=== PATIENT | female | born 1950 | race Caucasian/White ===

== ENCOUNTER 2018-12-24 10:01 | Outpatient (CLI) | payer MEDICARE, BC, SELFPAY ==
[2018-12-24 13:05] LABS: Abs Immature Grans 0.01 k/cumm (0.0-0.09); Absolute Basophil Count 0.01 k/cumm (0.0-0.2); Absolute Lymphocyte Count 1.09 k/cumm (1.2-3.4); Absolute Monocyte Count 0.67 k/cumm (0.11-0.7); Absolute Neutrophil Count 3.69 k/cumm (1.2-6.7); Basophils % 0.2; Eosinophils % 1.8; HCT 38.9 % (36.0-46.0); HGB 13.2 g/dL (12.0-15.5); Immature Grans % 0.2; Lymphocytes % 19.6; Mean Corp. HGB Concentration 33.9 g/dL (32.0-36.0); Mean Corpuscular Hemoglobin 31.6 pg (27.0-33.0); Mean Corpuscular Volume 93.1 fL (80-95); Mean Platelet Volume 9.8 fL (8.0-11.0); Neutrophils % 66.2; Platelet Count 221 x1000/uL (130-400); RBC 4.18 m/cumm (4.00-5.20); RBC Distribution Width 13.2 % (11.7-14.6); White Blood Cell Count 5.57 k/cumm (4.4-10.8)
[2018-12-24 13:10] LABS: ALT 23 U/L (12-78); AST 25 U/L (15-37); Albumin 3.8 g/dL (3.4-5.0); Alkaline Phosphatase 59 U/L (46-116); BUN 16 mg/dL (7-18); Bilirubin, Total 0.4 mg/dL (0.2-1.0); CREATININE 1.05 mg/dL (0.55-1.02); Calcium 8.9 mg/dL (8.5-10.1); Chloride 102 mmol/L (98-107); Estimated GFR 52.12 (mL/min/1.73m2); Glucose 70 mg/dL (70-100); Potassium 4.2 mmol/L (3.5-5.1); Sodium 143 mmol/L (136-145); TSH (W/Ref FT4) 0.95 uIU/mL (0.358-3.74); Total Protein 6.7 g/dL (6.4-8.2)
[2018-12-24 14:05] LABS: ESR 8 MM/HR (0-30)
== END 2018-12-24 10:21 ==
PROVIDERS: PCP Family Medicine; Visit Provider Internal Medicine
DX: E03.9 Hypothyroidism, unspecified (principal); N28.89 Other specified disorders of kidney and ureter; J02.9 Acute pharyngitis, unspecified; J34.89 Other specified disorders of nose and nasal sinuses
CPT/HCPCS: 36415; 80053; 85652; 84443; 85025; 87070

== ENCOUNTER 2019-02-13 01:46 | Outpatient (CLI) | payer MEDICARE, BC, SELFPAY ==
--- NOTE | 2019-02-13 14:15 | DI.US_ITS ---
SYMPTOM/DIAGNOSIS: CAROTID BRUIT, R09.89, DIZZINESS, RT ARM AND LEG TINGLING CAROTID ULTRASOUND: Minimal plaque is noted in the common carotid bulbs. Velocity measurements obtained in the internal carotid arteries are within the normal range. Both vertebral arteries show antegrade flow. The external carotid arteries are also unremarkable. IMPRESSION: Minimal plaque. No significant internal carotid artery stenosis.
== END 2019-02-13 02:06 ==
PROVIDERS: PCP Family Medicine; Visit Provider Family Medicine
DX: R09.89 Other specified symptoms and signs involving the circulatory and respiratory systems (principal); R42 Dizziness and giddiness; R20.2 Paresthesia of skin
CPT/HCPCS: 93880

== ENCOUNTER 2019-05-29 00:32 | Outpatient (CLI) | payer MEDICARE, BC, SELFPAY ==
--- NOTE | 2019-05-29 08:21 | DI.RAD_ITS ---
SYMPTOMS/DIAGNOSIS: RT HIP PAIN, M25.551, G89.29 PELVIS AND RIGHT HIP: The hip joint spaces are well maintained. There is mild acetabular spurring and minimal spurring from the margins of the femoral heads. No joint space calcifications are seen. The SI joints show mild degenerative changes. Advanced degenerative changes are seen in the lower lumbar spine. IMPRESSION: Mild degenerative changes of both hips.
== END 2019-05-29 00:52 ==
PROVIDERS: PCP Family Medicine; Visit Provider Nurse Practitioner Family
DX: M25.551 Pain in right hip (principal); G89.29 Other chronic pain; M53.3 Sacrococcygeal disorders, not elsewhere classified; M16.0 Bilateral primary osteoarthritis of hip
CPT/HCPCS: 73502

== ENCOUNTER → 2019-06-10 10:13 | Outpatient (BNVA) | payer MEDICARE, BC, SELFPAY | PROVIDERS: PCP Family Medicine; Referring Provider Family Medicine; Visit Provider Student in an Organized Health Care Education/Training Program | DX: M25.551 Pain in right hip (principal); M70.71 Other bursitis of hip, right hip | CPT/HCPCS: 99214 ==

== ENCOUNTER → 2019-06-26 10:05 | Outpatient (BNVA) | payer MEDICARE, BC, SELFPAY | PROVIDERS: PCP Family Medicine; Referring Provider Family Medicine; Visit Provider Nurse Practitioner Adult Health | DX: G56.21 Lesion of ulnar nerve, right upper limb (principal); G56.01 Carpal tunnel syndrome, right upper limb | CPT/HCPCS: 95909; 99203; 99214 ==

== ENCOUNTER 2020-03-10 01:59 | Outpatient (CLI) | payer MEDICARE, BC, SELFPAY | END 2020-03-10 02:19 | PROVIDERS: PCP Family Medicine; Visit Provider Family Medicine | DX: E03.9 Hypothyroidism, unspecified (principal) | CPT/HCPCS: 36415; 84443 ==

== ENCOUNTER 2020-04-01 19:54 | Emergency (ER) | payer MEDICARE, BC, SELFPAY ==
[2020-04-01 19:58] VITALS: BP 130/64; PULSE 65; RESP 16; TEMP 36.8; O2SAT 100
--- NOTE | 2020-04-01 20:11 | ED.GENADUL_ITS ---
Discharge Plan Disposition Patient Disposition: HOME Condition: Stable Discharge Details Chief Complaint: Abd Prob Clinical Impression: Colitis Primary Care Provider: Iona Larkin ED Provider: Aniket Guy Home Meds and New Rx's Prescriptions: New prednisone 20 mg tablet 60 mg PO DAILY 4 Days Qty: 12 RF: 0 amoxicillin-pot clavulanate [Augmentin] 875-125 mg tablet 1 tab PO BID Qty: 14 RF: 0 ondansetron 4 mg tablet,disintegrating 4 mg PO Q8H PRN (Reason: nausea and vomiting) Qty: 30 RF: 0 Continued Shingrix (PF) 50 mcg/0.5 mL suspension for reconstitution 0.5 ml IM ONCE Qty: 1 RF: 1 VITAMIN B COMPLEX 1 EACH tablet 1 tab-cap PO DAILY RF: 0 dicyclomine 10 MG capsule 10 mg PO TID PRNQty: 25 RF: 2 levothyroxine 100 mcg tablet 100 mcg PO DAILY Qty: 90 RF: 4 ascorbic acid (vitamin C) [Vitamin C] 500 MG tablet 500 mg PO DAILY RF: 0 cholecalciferol (vitamin D3) [Vitamin D3] 1,000 UNIT capsule 1,000 unit PO DAILY RF: 0 amitriptyline 10 mg tablet 20 mg PO HS RF: 0 Discharge Instructions Instructions: Colitis (ED) Additional Instructions: you can take 1000mg tylenol and 600mg ibuprofen every 6 hours follow up with your primary care provider within 1 week if you feel more ill, have more pain or uncontrolled bleeding return to the emergency department Medical Decision Making 69 yo female with hx of hypothyroidism comes in with abdominal cramping and bloody stools starting at 3am. She was at [facility] when this started and went to [facility] and states had labs and CT showing colitis and felt better and was d/c'd. Since d/c fromthe ED has had intermittent cramping and stool with blood in it. Denies vomit, fevers, travel. Has soft abdomen no guarding or rebound mild lower abdominal tenderness. Suspect infectious colitis no blood on rectal exam here. Will try to obtain records from [facility], give toradol, zofran and solumedrol and reassess. labs reassuring, she feels improved with only minimal tenderness, no pain out of proportion to suggest mesenteric ischemia and no bleeding here. She feels well enough for d/c and is stable. Will start her on augmentin for colitis, advised f/u with pcp and return precautions given Differential Diagnosis Differential Diagnosis: colitis, diverticulitis, gastroenteritis Lab Data Lab results reviewed: Yes I reviewed the patient's lab results. HPI General Mode of arrival: ambulatory . Date/Time Provider Initiated Documentation: 04/01/20 20:02 . Limitations to Documentation: no limitations . Information obtained by: patient . History of Present Illness 69 year old F presents to the emergency department with the chief complaint of abdominal pain, described as moderate, and it has been intermittent. No relieving factors improve symptom(s), No exacerbating factors reported . Related Data Home Medications Medication Instructions Recorded Confirmed Vitamin B Complex 1 tab-cap PO DAILY tab-cap 09/26/13 04/01/20 ascorbic acid (vitamin C) [Vitamin 500 mg PO DAILY 11/06/17 04/01/20 C] cholecalciferol (vitamin D3) 1,000 unit PO DAILY 11/06/17 04/01/20 [Vitamin D3] dicyclomine 10 mg PO TID PRN #25 tab-cap 11/22/17 04/01/20 varicella-zoster gE-AS01B (PF) 50 0.5 ml IM ONCE #1 each 02/12/20 02/12/20 mcg/0.5 mL IM susp, kit levothyroxine 100 mcg tablet 100 mcg PO DAILY #90 tab-cap 03/26/20 04/01/20 amitriptyline 20 mg PO HS 04/01/20 04/01/20 amoxicillin-pot clavulanate 1 tab PO BID #14 tab 04/01/20 [Augmentin] ondansetron 4 mg PO Q8H PRN #30 tab 04/01/20 prednisone 60 mg PO DAILY 4 Days #12 tab 04/01/20 Previous Rx's Medication Instructions Recorded varicella-zoster gE-AS01B (PF) 50 0.5 ml IM ONCE #1 each 02/12/20 mcg/0.5 mL IM susp, kit levothyroxine 100 mcg tablet 100 mcg PO DAILY #90 tab-cap 03/26/20 amoxicillin-pot clavulanate 1 tab PO BID #14 tab 04/01/20 [Augmentin] ondansetron 4 mg PO Q8H PRN #30 tab 04/01/20 prednisone 60 mg PO DAILY 4 Days #12 tab 04/01/20 Allergies Allergy/AdvReac Type Severity Reaction Status Date / Time ciprofloxacin HCl AdvReac dizzy, Unverified 02/12/20 09:10 [From Cipro] confusion metronidazole [From Flagyl] AdvReac dizzy, Unverified 02/12/20 09:10 confusion General Stated Complaint: Abd Prob KANE: 2 Review of Systems All systems reviewed & are unremarkable except as noted in HPI and below Constitutional Constitutional: Denies chills, Denies fever(s) and Denies weakness Cardiovascular Cardiovascular: Denies chest pain and Denies dyspnea Respiratory Respiratory: Denies cough and Denies dyspnea Gastrointestinal Gastrointestinal: Denies vomiting Genitourinary Genitourinary: Denies dysuria Integumentary/Breasts Skin/Breast: Denies rash Neurologic Neurologic: Denies weakness [facility] Medical History (Updated 04/01/20 @ 21:07 by Aniket Guy MD) Age-related cataract of both eyes (Acute) Dr.Tuite Munoz (Acute) Hypothyroidism Macular cyst, hole, or pseudohole, left eye (Acute) Dr.Nancy Garsia/left eye: Amsler grid stable/ [facility] clinic [place], [place]/on going observation 2018 Osteoporosis (Chronic) Surgical History (Updated 02/11/20 @ 20:16 by Iona Larkin MD) Arthroplasty of knee (~1967) RIGHT Breast, Lumpectomy (~1976) RIGHT Ligation of fallopian tube (~1984) Nasal septoplasty (~1979) Tonsillectomy and adenoidectomy Age 5 - 1955 Family History (Updated 02/12/20 @ 13:47 by Adair Holcomb) Mother , 58 Lung cancer Maternal Grandmother , 94 Stroke Paternal Grandmother , 60 Cancer Father , 92 No problems noted. Sister No problems noted. Brother No problems noted. Maternal Grandfather , 80 No problems noted. Paternal Grandfather , 72 No problems noted. Daughter No problems noted. Daughter No problems noted. Sister No problems noted. Brother No problems noted. Brother No problems noted. Social History (Updated 02/12/20 @ 13:45 by Adair Holcomb) Smoking/Tobacco Use Status: Former Tobacco Use Tobacco: How many years used: 2 Second Hand Exposure: Yes Alcohol Intake: current Alcohol Intake frequency: 0-2 drinks per day Alcohol type: hard liquor Drug use: Never Substance use type: former substance user and marijuana Caregiver/Support person: Yes Household members: spouse Housing: house Communication Needs: None Do you need help understanding health information?: Never Pets and animals: Yes Pets and animals: dog(s) Sexually active: No Do you think of yourself as: straight/heterosexual Current gender identity: female What is your relationship status?: How often do you talk on the phone with friends or family?: three or more times per week How often do you get together with friends or relatives?: once per week How often do you attend amish or lutheran services?: 1-3 times per year Do you belong to any clubs or organized social groups?: yes Panel score (0-1 are the most socially isolated patients): 3 What type of physical activity do you participate in: bicycling, weight lifting and other Details: hockey,Alpine & downhill skiing, snowshoeing, tennis golf. Duration: 45-60 minutes/day Frequency: 3-4 times per week Diamond/Sikhism: Yazidism Special diamond needs: No Seatbelt use: always Helmet use: Yes Helmet use: always Drive intox or ride w/intox truck driver helper: No Working smoke detector in home: No Do you feel safe at home: Yes Do you feel safe in your relationship?: Yes Exam Const General: no acute distress Orientation: alert HENDE Head: normal to inspection Ears: external ears normal General nose exam: external nose normal Mouth: moist mucous membranes Eyes General: appearance normal, both eyes and all related structures Neck Neck: normal visual inspection Resp Effort & Inspection: normal respiratory effort and able to speak in complete sentences Cardio Rate: regular rate GI Palpation: soft Skin General skin exam: no rashes or lesions noted Neuro General: patient alert and patient oriented x3 Extrem General: normal to inspection Psych Mental Status: mental status grossly normal Course Vital Signs Vital signs: Vital Signs Temperature 36.8 C 04/01/20 19:58 Pulse 65 04/01/20 19:58 Respiratory Rate 16 04/01/20 19:58 Blood Pressure 130/64 04/01/20 19:58 Pulse Oximetry 100 04/01/20 19:58 Temperature 36.8 C 04/01/20 19:58 Pulse 65 04/01/20 19:58 Respiratory Rate 16 07/08/20 19:58 Respiratory Effort 04/01/20 20:07 Blood Pressure 130/64 04/01/20 19:58 Blood Pressure Position Sitting 04/01/20 19:58 Pulse Oximetry 100 04/01/20 19:58 Oxygen Delivery Method Room Air 04/01/20 19:58 Oxygen Flow Rate 0 04/01/20 19:58 Pain Level 4 04/01/20 19:58
[2020-04-01] MEDS: Normal Saline 1,000 ML 1000 ML IV (20:20)
[2020-04-01] MEDS: Ondansetron 4 MG/2 ML VIAL IVP (20:21)
[2020-04-01] MEDS: methylPREDNISolone SUCC 125 MG VIAL IVP (20:21)
[2020-04-01] MEDS: Ketorolac 15 MG/ML VIAL IVP (20:21)
[2020-04-01 20:28] LABS: Abs Immature Grans 0.02 k/cumm (0.0-0.09); Absolute Eosinophil Count 0.05 k/cumm (0.0-0.7); Absolute Lymphocyte Count 0.92 k/cumm (1.2-3.4); Absolute Monocyte Count 0.66 k/cumm (0.11-0.7); Eosinophils % 0.6; HCT 37.4 % (36.0-46.0); HGB 12.8 g/dL (12.0-15.5); Immature Grans % 0.2 %; Mean Corp. HGB Concentration 34.2 g/dL (32.0-36.0); Mean Corpuscular Hemoglobin 30.8 pg (27.0-33.0); Mean Corpuscular Volume 90.1 fL (80-95); Mean Platelet Volume 9.2 fL (8.0-11.0); Monocytes % 7.9; Neutrophils % 80.3; Platelet Count 251 x1000/uL (130-400); RBC 4.15 m/cumm (4.00-5.20); RBC Distribution Width 14.1 % (11.7-14.6); White Blood Cell Count 8.35 k/cumm (4.4-10.8)
[2020-04-01 20:44] LABS: PTT Activated 24.6 sec (21.0-31.4)
[2020-04-01 20:45] LABS: ALT 23 U/L (14-59); AST 31 U/L (15-37); Alkaline Phosphatase 50 U/L (46-116); BUN 15 mg/dL (7-18); Bilirubin, Direct 0.28 mg/dL (0.00-0.20); Bilirubin, Total 1.3 mg/dL (0.2-1.0); CREATININE 1.09 mg/dL (0.55-1.02); Calcium 8.7 mg/dL (8.5-10.1); Chloride 101 mmol/L (98-107); Estimated GFR 49.77 (mL/min/1.73m2); Glucose 98 mg/dL (74-106); Potassium 3.8 mmol/L (3.5-5.1); Sodium 137 mmol/L (136-145)
[2020-04-01] MEDS: Amoxicillin 875/Clav. 125 TAB PO (21:11)
[2020-04-01 21:18] VITALS: BP 134/69; PULSE 69; RESP 16; TEMP 36.9; O2SAT 100
== END 2020-04-01 21:24 | disposition home or self-care (01) ==
PROVIDERS: Emergency Provider Emergency Medicine; PCP Family Medicine
DX: K92.1 Melena (principal); K52.9 Noninfective gastroenteritis and colitis, unspecified; R10.30 Lower abdominal pain, unspecified
CPT/HCPCS: 36415; 80053; 96361; 96374; 96375; 99284; 82248; 85025; 85610; 85730; 99283; J1885; J2405; J2930

== ENCOUNTER 2020-04-21 13:02 | Outpatient (CLI) | payer MEDICARE, BC, SELFPAY ==
[2020-04-23 21:00] LABS: SARS-CoV-2 RNA Undetected (Undetected); SARS-CoV-2 Specimen Source Nasopharynx
== END 2020-04-21 13:22 ==
PROVIDERS: PCP Family Medicine; Visit Provider Family Medicine
DX: Z11.59 Encounter for screening for other viral diseases (principal)
CPT/HCPCS: U0003

== ENCOUNTER 2020-08-02 11:18 | Emergency (ER) | payer MEDICARE, BC, SELFPAY ==
--- NOTE | 2020-08-02 11:20 | ED.GENADUL_ITS ---
Discharge Plan Disposition Patient Disposition: HOME Condition: Good Discharge Details Clinical Impression: Dog bite, Hematoma Primary Care Provider: Iona Larkin ED Provider: Evy Cooper Home Meds and New Rx's Prescriptions: New amoxicillin-pot clavulanate [Augmentin] 875-125 mg tablet 1 tab PO BID Qty: 14 RF: 0 Continued Shingrix (PF) 50 mcg/0.5 mL suspension for reconstitution 0.5 ml IM ONCE Qty: 1 RF: 1 amitriptyline 10 mg tablet 15 mg PO HS Qty: 180 RF: 4 VITAMIN B COMPLEX 1 EACH tablet 1 tab-cap PO DAILY RF: 0 dicyclomine 10 MG capsule 10 mg PO TID PRNQty: 25 RF: 2 levothyroxine 100 mcg tablet 100 mcg PO DAILY Qty: 90 RF: 4 cholecalciferol (vitamin D3) [Vitamin D3] 1,000 UNIT capsule 1,000 unit PO DAILY RF: 0 Discharge Instructions Instructions: Animal Bite (ED), Hematoma (ED) Additional Instructions: Encourage rest, ice, elevation. Tylenol and/or ibuprofen if needed for discomfort. Please continue with the Yogesh wrap to help with swelling. Please monitor this wound closely for signs of infection including redness, warmth, drainage, increased pain, fever/chills. If you develop this or other new/worsening symptoms please seek care urgently once again. Otherwise, I would like this 1 to be rechecked next week for reevaluation. Please call your primary care tomorrow to schedule follow-up appointment. Please take the Augmentin as prescribed to help with infection. First dose was given here today, next dose may be taken tonight prior to bed. Referrals: Iona Larkin MD [Primary Care Provider] - Discharge Data Discharge Date/Time-TO BE ENTERED AT DEPARTURE: 08/02/20 12:00 Medical Decision Making Patient is a pleasant 70-year-old female presenting today with chief complaint of dog bite. She reports that prior to arrival she was riding her bike when a dog came at her aggressively. She has that she is trying to unclip from the bike and get off the bike when the dog bit the posterior aspect of her left calf. She denies any numbness or tingling. Denies other injuries from the incident. She states that she was able to meet with the dog tip puncher and confirm that the dog is vaccinated states that the dog is physically aggressive towards by bikers. She states her tetanus is up-to-date. On exam, patient is resting comfortably. She has a puncture wound to the posterior aspect of her left calf consistent with dog bite. 7 of these are very superficial with one being slightly deeper. However, with irrigation there did visualize the bases this did not see any foreign body or debris. All of these wounds were well irrigated and cleansed by nursing staff. She has a hematoma around this area it does not feel firm. No indication at this time to suggest compartment syndrome. She has good sensation distally, full range of motion of the knee and ankle. 2+ distal pulses. Patient will be started on Augmentin. Her tetanus is up-to-date. We did contact telehealth after to report the dog bite. Patient was given return precautions. In particular, patient I discussed symptoms associated with infection as well department syndrome. I would like for her to have this evaluated by her primary care this week. Asked that she call tomorrow to schedule appointment. All of her questions and concerns were addressed and she is in agreement this plan. HPI General Mode of arrival: ambulatory . Date/Time Provider Initiated Documentation: 08/02/20 11:20 . Limitations to Documentation: no limitations . Information obtained by: patient and RN notes reviewed . History of Present Illness 70 year old F presents to the emergency department with the chief com plaint of dog bite left calf, described as moderate, and is localized to the left and lower extremity. Patient reports no radiation. Patient started experiencing this minute(s) and it has been constant. No relieving factors improve symptom(s), No exacerbating factors reported . Patient notes no other symptoms.. Patient did receive the following treatments prior to arrival, none Related Data Home Medications Medication Instructions Recorded Confirmed Vitamin B Complex 1 tab-cap PO DAILY tab-cap 09/26/13 08/02/20 cholecalciferol (vitamin D3) 1,000 unit PO DAILY 11/06/17 08/02/20 [Vitamin D3] dicyclomine 10 mg PO TID PRN #25 tab-cap 11/22/17 08/02/20 varicella-zoster glycoE vacc-AS01B 0.5 ml IM ONCE #1 each 02/12/20 08/02/20 adj(PF) 50 mcg/0.5 mL IM susp, kit levothyroxine 100 mcg tablet 100 mcg PO DAILY #90 tab-cap 03/26/20 08/02/20 amitriptyline 10 mg tablet 15 mg PO HS #180 tab 06/22/20 08/02/20 amoxicillin-pot clavulanate 1 tab PO BID #14 tab 08/02/20 [Augmentin] Previous Rx's Medication Instructions Recorded varicella-zoster glycoE vacc-AS01B 0.5 ml IM ONCE #1 each 02/12/20 adj(PF) 50 mcg/0.5 mL IM susp, kit levothyroxine 100 mcg tablet 100 mcg PO DAILY #90 tab-cap 03/26/20 amitriptyline 10 mg tablet 15 mg PO HS #180 tab 06/22/20 amoxicillin-pot clavulanate 1 tab PO BID #14 tab 08/02/20 [Augmentin] Allergies Allergy/AdvReac Type Severity Reaction Status Date / Time ciprofloxacin HCl AdvReac dizzy, Verified 08/02/20 11:27 [From Cipro] confusion metronidazole [From Flagyl] AdvReac dizzy, Verified 08/02/20 11:27 confusion General KANE: 2 Review of Systems Constitutional Constitutional: Reports as per HPI, Denies chills and Denies fever(s) Musculoskeletal Musculoskeletal: Reports as per HPI Integumentary/Breasts Skin/Breast: Reports as per HPI Neurologic Neurologic: Reports as per HPI, Denies sensory deficit and Denies paresthesias [facility] Medical History Age-related cataract of both eyes Anxiety Hypothyroidism Macular cyst, hole, or pseudohole, left eye Dr.Nancy Garsia/left eye: Amsler grid stable/ [facility] clinic [place], [place]/on going observation 2018 Osteoporosis Surgical History Arthroplasty of knee (~1967) RIGHT Breast, Lumpectomy (~1976) RIGHT Ligation of fallopian tube (~1984) Nasal septoplasty (~1979) Tonsillectomy and adenoidectomy Age 5 - 1955 Family History Mother , 58 Lung cancer Maternal Grandmother , 94 Stroke Paternal Grandmother , 60 Cancer Father , 92 No problems noted. Sister No problems noted. Brother No problems noted. Maternal Grandfather , 80 No problems noted. Paternal Grandfather , 72 No problems noted. Daughter No problems noted. Daughter No problems noted. Sister No problems noted. Brother No problems noted. Brother No problems noted. Social History Smoking/Tobacco Use Status: Former Tobacco Use Tobacco: How many years used: 2 Second Hand Exposure: Yes Smoking risk assessment performed?: Yes Alcohol Intake: current Alcohol Intake frequency: 0-2 drinks per day Alcohol type: hard liquor Drug use: Never Substance use type: former substance user and marijuana Caregiver/Support person: Yes Household members: spouse Housing: house Communication Needs: None Do you need help understanding health information?: Never Pets and animals: Yes Pets and animals: dog(s) Sexually active: No Do you think of yourself as: straight/heterosexual Current gender identity: female What is your relationship status?: How often do you talk on the phone with friends or family?: three or more times per week How often do you get together with friends or relatives?: once per week How often do you attend cheondoism or nondenominational services?: 1-3 times per year Do you belong to any clubs or organized social groups?: yes Panel score (0-1 are the most socially isolated patients): 3 What type of physical activity do you participate in: bicycling, weight lifting and other Details: hockey,Alpine & downhill skiing, snowshoeing, tennis golf. Duration: 45-60 minutes/day Frequency: 3-4 times per week Diamond/Christian: Congregation Special diamond needs: No Seatbelt use: always Helmet use: Yes Helmet use: always Drive intox or ride w/intox transit mixer driver: No Working smoke detector in home: No Do you feel safe at home: Yes Do you feel safe in your relationship?: Yes Exam Const General: cooperative, healthy appearing, comfortable, no acute distress and well developed Nutritional Appearance: average body habitus and well nourished Orientation: alert and awake Resp Effort & Inspection: normal respiratory effort, able to speak in complete sentences and no respiratory distress Cardio Rate: regular rate Rhythm: regular rhythm Skin General skin exam: ecchymosis (hematoma under areas of puncture) Trauma: puncture (#8 puncture wounds, 7 of which are superficial, no longer laceration) Neuro General: patient alert and patient awake Cognition: normal cognition Speech: speech normal Gait: normal gait Sensory Exam: no sensory deficits noted Extrem Upper/lower leg/hip images: 1. area of hematoma. Otherwise soft with good ROM of ankle. No evidence to suggest compartment sydnrome. Nontender. 8 puncture sites are noted with majority being very superficial. One breaks through skin completely but again, not very deep with bottom visualized when cleansing. Sensation intact. 2+ distal pulses. Psych Appearance: grossly normal and well kempt Mental Status: mental status grossly normal Speech and Movement: speech and movement normal
[2020-08-02 11:23] VITALS: BP 135/75; PULSE 72; TEMP 36.3; O2SAT 100
[2020-08-02] MEDS: Amoxicillin 875/Clav. 125 TAB PO (12:00)
--- NOTE | 2020-08-02 12:04 | NUR.NOTE ---
Animal bite form faxed to [facility], , Message left on voice mail Luis Armando Destini [phone] [facility] Health Officer asking him to please call back.Nursing Note:
--- NOTE | 2020-08-02 16:23 | NUR.NOTE ---
Luis Armando Georges returned phone call for animal bite information at 17:24.Nursing Note:
== END 2020-08-02 12:00 | disposition home or self-care (01) ==
LOC: ER 11:54
PROVIDERS: Emergency Provider Physician Assistant; PCP Family Medicine
DX: S81.852A Open bite, left lower leg, initial encounter (principal); W54.0XXA Bitten by dog, initial encounter
CPT/HCPCS: 99283

== ENCOUNTER 2020-09-11 09:09 | Outpatient (CLI) | payer MEDICARE, BC, SELFPAY ==
[2020-09-14 12:11] LABS: COVID-19 RT-PCR Result NEGATIVE (Negative)
== END 2020-09-11 09:29 ==
PROVIDERS: PCP Family Medicine; Visit Provider Family Medicine
DX: Z11.59 Encounter for screening for other viral diseases (principal)
CPT/HCPCS: U0003

== ENCOUNTER 2020-12-29 03:22 | Outpatient (CLI) | payer MEDICARE, BC, SELFPAY ==
[2020-12-29 12:30] LABS: HCT 35.8 % (36.0-46.0); MCH 30.8 pg (27.0-33.0); MCHC 33.5 % (32.0-36.0); MPV 9.6 fL (8.0-11.0); Platelet Count 248 10^3/uL (130-400); RBC 3.89 10^6/uL (3.93-5.22); RDW 13.8 % (11.7-14.6); RDW-SD 46.1 fL; WBC 4.03 10^3/uL (4.4-10.8)
[2020-12-29 13:15] LABS: C-Reactive Protein 0.09 mg/dL (0.0-0.3)
== END 2020-12-29 03:23 | disposition home or self-care (01) ==
PROVIDERS: Nurse Practitioner Family; PCP Family Medicine; Visit Provider Internal Medicine Gastroenterology
DX: R19.7 Diarrhea, unspecified (principal); R10.30 Lower abdominal pain, unspecified
CPT/HCPCS: 36415; 85027; 86140

== ENCOUNTER 2021-02-23 02:46 | Outpatient (CLI) | payer MEDICARE, BC, SELFPAY ==
[2021-02-23 13:01] LABS: CREATININE 1.2 mg/dL (0.55-1.02); Estimated GFR 44.41 (mL/min/1.73m2); TSH 0.96 uIU/mL (0.36-3.74)
== END 2021-02-23 02:47 | disposition home or self-care (01) ==
LOC: LOS 02:46
PROVIDERS: PCP Family Medicine; Visit Provider Nurse Practitioner
DX: N18.30 Chronic kidney disease, stage 3 unspecified (principal); R19.7 Diarrhea, unspecified
CPT/HCPCS: 36415; 82565; 84443

== ENCOUNTER 2021-12-21 03:14 | Outpatient (CLI) | payer MEDICARE, BC, SELFPAY ==
[2021-12-21 13:23] LABS: Hemoglobin A1C 5.8 % (<5.7)
[2021-12-21 13:51] LABS: Anion Gap 8.8 mmol/L (3-11); BUN 17 mg/dL (7-18); CO2 29.2 mmol/L (21.0-32.0); Calcium 9.3 mg/dL (8.5-10.1); Calculated LDL 61 mg/dL (<100); Chloride 103 mmol/L (98-107); Cholesterol 160 mg/dL (<200); Estimated GFR 54.66 (mL/min/1.73m2); Glucose 85 mg/dL (74-106); HDL Cholesterol 91 mg/dL (40-60); Potassium 3.9 mmol/L (3.5-5.1); Sodium 141 mmol/L (136-145); TSH 0.59 uIU/mL (0.36-3.74); Triglyceride 41 mg/dL (<150)
[2021-12-21 14:13] LABS: FREE T4 1.27 ng/dL (0.76-1.46)
== END 2021-12-21 03:15 | disposition home or self-care (01) ==
LOC: LBO 03:14
PROVIDERS: PCP Nurse Practitioner Family; Visit Provider Nurse Practitioner Family
DX: E03.9 Hypothyroidism, unspecified (principal); N18.30 Chronic kidney disease, stage 3 unspecified; R73.09 Other abnormal glucose
CPT/HCPCS: 36415; 80048; 80061; 83036; 84439; 84443

== ENCOUNTER 2022-08-29 16:34 | Emergency (ER) | payer MEDICARE, BC, SELFPAY ==
[2022-08-29 16:39] VITALS: BP 139/64; PULSE 62; RESP 20; TEMP 36.7; O2SAT 99
--- NOTE | 2022-08-29 16:45 | DI.RAD_ITS ---
Exam(s) XR WRIST LT COMPLETE EXAM: XR WRIST LT COMPLETE CLINICAL HISTORY: fall/pain. TECHNIQUE: 2D digital imaging was performed of the left wrist. Three images were obtained. PA, obl ique and lateral views were obtained. COMPARISON: CR LEFT WRIST COMPLETE from 08/12/2016 FINDINGS: BONES: There is an acute impacted fracture of the distal metaphysis of the left radius. No bony dest ructive lesion is seen. JOINTS: The carpal bones are normally aligned. There are marked degenerative changes seen at the 1st CMC joint with joint space narrowing, subchondral sclerosis and bony hypertrophy. SOFT TISSUE: Soft tissue swelling is seen at the wrist. IMPRESSION: Acute impacted fracture of the distal radius. DATA REPOSITORY: RADIATION DOSE DELIVERED:
--- NOTE | 2022-08-29 17:45 | ED.GENADUL_ITS ---
Discharge Plan Disposition Patient Disposition: Home Condition: Stable Discharge Details Clinical Impression: Left radial fracture Primary Care Provider: Anita Arriola ED Provider: Hernandez Schofield Home Meds and New Rx's Prescriptions: Continued amitriptyline 10 mg tablet 15 mg PO QHS Qty: 90 3RF VITAMIN B COMPLEX 1 EACH tablet 1 tab-cap PO DAILY dicyclomine 10 MG capsule 10 mg PO TID PRNQty: 25 Rx Instructions: take one capsule at the onset of abdominal pain/may repeat up to 3 times per day levothyroxine 100 mcg tablet 100 mcg PO DAILY Qty: 90 3RF cholecalciferol (vitamin D3) [Vitamin D3] 1,000 UNIT capsule 1,000 unit PO DAILY Discharge Instructions Instructions: Arm Fracture in Adults (ED) Additional Instructions: Rest, elevate, cool compresses every 2 hours for 20 minutes. [id number] medications as directed for symptomatic control. Wear splint until reevaluation with orthopedics. I have placed you on the orthopedic list, please contact thei r office tomorrow to discuss your ER visit need for outpatient reevaluation. Please watch for new or worsening symptoms and return to the ER for any concerns. Referrals: Alejandro Mendoza MD [ [facility] STAFF PHYSICIAN] - Medical Decision Making 72-year-old female, [id number], not anticoagulated, presents status post mechanical slip and fall injuring her left wrist. Denies any other injury. Plan to obtain x-ray and reassess. Patient declines any medication for analgesia. X-ray reveals a transverse impacted fracture of the distal radius. Discussed x-ray findings with patient and spouse. Patient appropriate splinted, placed on the orthopedic list to expedite outpatient orthopedic follow-up. Patient remains neuro, vascular, tendon intact as examined by me status post splint application Standard discharge and return precautions were provided. Patient understands, is agreeable to this plan, and has no additional questions or concerns upon discharge. This documentation was generated using [employer] system, please disregard any oddities of phrase or misspellings. Imaging Data Radiologic Study: Attestation: I personally reviewed and interpreted this imaging study as follows: Imaging: X-Ray Radiologist's impression: PROCEDURE INFORMATION: Exam: XR Left Wrist Exam date and time: 08/29/2022 5:19 PM Age: 72 years old Clinical indication: Other: Fall/pain TECHNIQUE: Imaging protocol: Radiologic exam of the Left wrist. Views: 3 or more views. COMPARISON: CR LEFT WRIST COMPLETE 08/12/2016 12:37 PM FINDINGS: Bones/joints: Transverse impacted fracture of the distal radius. No dislocation. Chronic well corticated ossific density adjacent to the ulnar styloid. Severe 1st CMC joint osteoarthritis. Soft tissues: Wrist swelling. IMPRESSION: Transverse impacted fracture of the distal radius. Sign Out No HPI General Mode of arrival: ambulatory . Date/Time Provider Initiated Documentation: 08/29/22 16:47 . Limitations to Documentation: no limitations . Information obtained by: patient . History of Present Illness 72 year old F presents to the emergency department with the chief complaint of L wrist injury, described as severe, with intensity rated at 7. Quality is described as aching, and is localized to the left and upper extremity. Patient reports no radiation. Patient started experiencing this hour(s) (2) and it has been constant. Immobilization improves symptom(s), Movement worsens symptoms . Patient notes no other symptoms.. Patient did receive the following treatments prior to arrival, none Related Data Home Medications Medication Instructions Recorded Confirmed Vitamin B Complex 1 tab-cap PO DAILY 09/26/13 08/25/22 cholecalciferol (vitamin D3) 25 1,000 unit PO DAILY 11/06/17 08/25/22 mcg (1,000 unit) capsule (Vitamin D3) dicyclomine 10 mg capsule 10 mg PO TID PRN #25 tab-caps 11/22/17 08/25/22 levothyroxine 100 mcg tablet 100 mcg PO DAILY #90 tab-caps 12/22/21 08/25/22 amitriptyline 10 mg tablet 15 mg PO QHS #90 tabs 08/25/22 08/25/22 Previous Rx's Medication Instructions Recorded levothyroxine 100 mcg tablet 100 mcg PO DAILY #90 tab-caps 12/22/21 amitriptyline 10 mg tablet 15 mg PO QHS #90 tabs 08/25/22 Allergies Allergy/AdvReac Type Severity Reaction Status Date / Time ciprofloxacin HCl AdvReac dizzy, Verified 08/25/22 09:52 [From Cipro] confusion metronidazole [From Flagyl] AdvReac dizzy, Verified 08/25/22 09:52 confusion General Stated Complaint: Orthopedic KANE: 4 Review of Systems Constitutional Constitutional: Denies weakness Musculoskeletal Musculoskeletal: Reports arthralgias, Reports joint swelling, Denies numbness, Reports stiffness and Denies tingling Integumentary/Breasts Skin/Breast: Denies rash Neurologic Neurologic: Denies numbness, Denies tingling and Denies weakness PFSH All Active Problems (Updated 08/29/22 @ 18:39 by BRODEI Sen) Left radial fracture (Acute) Plantar fasciitis, right (Acute) CKD (chronic kidney disease) stage 3, GFR 30-59 ml/min (Chronic) Hypothyroidism (Chronic) Osteoporosis (Chronic) Generalized anxiety disorder (Chronic) Macular cyst, hole, or pseudohole, left eye (Chronic) Dr.Nancy Garsia/left eye: [facility] [place], [place]/on going observation 2018 Medical History Prediabetes Surgical History History of bilateral ligation of fallopian tubes S/P nasal septoplasty S/P right knee arthroscopy Status post tonsillectomy and adenoidectomy Family History Mother , 58 Lung cancer Maternal Grandmother , 94 Stroke Paternal Grandmother , 60 Cancer Father , 92 No problems noted. Sister No problems noted. Brother No problems noted. Maternal Grandfather , 80 No problems noted. Paternal Grandfather , 72 No problems noted. Daughter No problems noted. Daughter No problems noted. Sister No problems noted. Brother No problems noted. Brother No problems noted. Social History Smoking/Tobacco Use Status: Never Tobacco: How many years used: 2 Second Hand Exposure: Yes Smoking risk assessment performed?: Yes Alcohol Intake: current Alcohol Intake frequency: a few times a month Alcohol type: hard liquor Drug use: Never Caregiver/Support person: No Household members: spouse Housing: house Do you need help understanding health information?: Rarely Pets and animals: Yes Pets and animals: dog(s) Sexually active: No Do you think of yourself as: straight/heterosexual Current gender identity: female What is your relationship status?: How often do you talk on the phone with friends or family?: three or more times per week How often do you get together with friends or relatives?: once per week Do you belong to any clubs or organized social groups?: yes Panel score (0-1 are the most socially isolated patients): 3 What type of physical activity do you participate in: walking, bicycling, weight lifting and other Details: hockey,Alpine & downhill skiing, snowshoeing, tennis golf. Duration: 45-60 minutes/day Frequency: 5-6 times per week Diamond/Druze: Hinduism Special diamond needs: No Seatbelt use: always Helmet use: Yes Helmet use: always Drive intox or ride w/intox bicycle taxi driver: No Working smoke detector in home: No Do you feel safe at home: Yes Do you feel safe in your relationship?: Yes Exam Const General: cooperative, healthy appearing, comfortable and no acute distress Orientation: alert and awake HENNY Head: normal to inspection, normocephalic and atraumatic Eyes Conjunctivae: conjunctivae normal Neck Neck: normal visual inspection, full ROM, trachea midline and supple Resp Effort & Inspection: normal respiratory effort and able to speak in complete sentences Cardio Rate: regular rate Rhythm: regular rhythm Skin General skin exam: no rashes or lesions noted Neuro General: patient alert, patient awake, moves all extremities and no focal motor deficits Cognition: normal cognition Speech: speech normal Gait: normal gait Sensory Exam: no sensory deficits noted Extrem General: capillary refill normal Other: Left wrist skin intact. Neuro, vascular, tendon intact. Limited range of motion secondary to discomfort. Diffuse mild swelling and tenderness worse over the radial aspect. Normal capillary refill and radial pulse. Elbow unremarkable Psych Appearance: grossly normal Mental Status: mental status grossly normal Course Vital Signs Vital signs: Vital Signs Temperature 36.7 C 08/29/22 16:39 Pulse 62 08/29/22 16:39 Respiratory Rate 20 08/29/22 16:39 Blood Pressure 139/64 08/29/22 16:39 Pulse Oximetry 99 08/29/22 16:39 Temperature 36.7 C 08/29/22 16:39 Temperature Source Temporal Artery Scan 08/29/22 16:39 Pulse 62 08/29/22 16:39 Respiratory Rate 20 08/29/22 16:39 Respiratory Effort 08/29/22 16:46 Blood Pressure 139/64 08/29/22 16:39 Blood Pressure Position Sitting 08/29/22 16:39 Pulse Oximetry 99 08/29/22 16:39 Oxygen Delivery Method Room Air 08/29/22 16:39 Oxygen Flow Rate 0 08/29/22 16:39 Pain Level 6 08/29/22 16:39 Procedures Orthopedic Splinting/Casting Injury #1: Side: left Upper Extremity Injury Location: wrist Upper Extremity Immobilizer: wrist splint
--- NOTE | 2022-08-30 09:26 | NUR.NOTE ---
Nursing Note: Patient called asking for pain medication for a fx wrist. It was offered yesterday but she declined and now wants some. Per Dr Guy, she would need to be seen in order to prescribe a narcotic pain medication. She was offered to return to the ED or call her PCP. She is going to try her PCP first.
== END 2022-08-29 18:47 | disposition home or self-care (01) ==
PROVIDERS: Emergency Provider Physician Assistant; PCP Nurse Practitioner Family
DX: S52.592A Other fractures of lower end of left radius, initial encounter for closed fracture (principal); W00.0XXA Fall on same level due to ice and snow, initial encounter
CPT/HCPCS: 29125; 99283; 73110

== ENCOUNTER 2022-09-06 11:02 | Outpatient (CLI) | payer MEDICARE, BC, SELFPAY ==
--- NOTE | 2022-09-06 10:58 | DI.RAD_ITS ---
Exam(s) XR WRIST LT LIMITED EXAM: XR WRIST LT LIMITED CLINICAL HISTORY: left radius fx f/u. TECHNIQUE: 2D digital imaging was performed of the left wrist. Two images were obtained. PA and la teral views were obtained. COMPARISON: CR,XR XR WRIST LT COMPLETE from 08/29/2022 FINDINGS: BONES: There has been no change in alignment of the distal left radial fracture. No new fracture is identified. No bony destructive lesion is seen. JOINTS: The carpal bones are normally aligned. There are marked degenerative changes seen at the 1st CMC joint. SOFT TISSUE: Normal. IMPRESSION: Stable distal radial fracture. DATA REPOSITORY: RADIATION DOSE DELIVERED:
== END 2022-09-06 11:03 | disposition home or self-care (01) ==
LOC: DIORS 11:02
PROVIDERS: PCP Nurse Practitioner Family; Referring Provider Nurse Practitioner Family; Visit Provider Student in an Organized Health Care Education/Training Program
DX: S52.502A Unspecified fracture of the lower end of left radius, initial encounter for closed fracture (principal); W00.0XXA Fall on same level due to ice and snow, initial encounter
CPT/HCPCS: 99203; 99213; 73100

== ENCOUNTER 2022-10-11 10:17 | Outpatient (CLI) | payer MEDICARE, BC, SELFPAY ==
--- NOTE | 2022-10-11 09:30 | DI.RAD_ITS ---
Exam(s) XR WRIST LT LIMITED EXAM: XR WRIST LT LIMITED CLINICAL HISTORY: left wrist f/u. TECHNIQUE: 2D digital imaging was performed. COMPARISON: X-rays 09/06/2022 FINDINGS: Two views: Area of sclerosis in distal radius denotes the healing fracture site. No significant displacement. No significant ulnar variance and there is no acute fracture of the ulnar styloid. Additional cortic ated osteophytic density distal to the ulnar styloid is again noted and is not an acute fracture frag ment. IMPRESSION: Healing fracture distal radius as described above. DATA REPOSITORY: RADIATION DOSE DELIVERED:
== END 2022-10-11 10:18 | disposition home or self-care (01) ==
LOC: DIORS 10:17
PROVIDERS: PCP Nurse Practitioner Family; Referring Provider Nurse Practitioner Family; Visit Provider Student in an Organized Health Care Education/Training Program
DX: S52.502D Unspecified fracture of the lower end of left radius, subsequent encounter for closed fracture with routine healing (principal); X58.XXXD Exposure to other specified factors, subsequent encounter; M18.12 Unilateral primary osteoarthritis of first carpometacarpal joint, left hand; G56.02 Carpal tunnel syndrome, left upper limb
CPT/HCPCS: 99213; 73100

== ENCOUNTER 2022-10-21 14:25 | Outpatient (CLI) | payer MEDICARE, BC, SELFPAY ==
--- NOTE | 2022-10-21 14:19 | DI.RAD_ITS ---
Exam(s) XR SHOULDER RT COMPLETE 2+V EXAM: XR SHOULDER RT COMPLETE 2+V CLINICAL HISTORY: RT SHOULDER OA, IMPINGEMENT, CAPSULITIS. TECHNIQUE: 2D digital imaging was performed of the right shoulder. Five images were obtained. AP, Grashey, Y-view and axillary views were obtained. COMPARISON: No exams were available for comparison FINDINGS: BONES: No acute fracture is present. No bony destructive lesion is seen. JOINTS: No dislocation present. There are marked degenerative changes seen at the glenohumeral joint with joint space narrowing and a large osteophyte from the inferior humeral head. Mild degenerative changes are seen at the acromioclavicular joint. SOFT TISSUE: Normal. IMPRESSION: Marked osteoarthritis of the glenohumeral joint. DATA REPOSITORY: RADIATION DOSE DELIVERED:
== END 2022-10-21 14:45 ==
PROVIDERS: PCP Nurse Practitioner Family; Visit Provider Neuromusculoskeletal Medicine & OMM
DX: M25.511 Pain in right shoulder (principal); M19.011 Primary osteoarthritis, right shoulder; M25.811 Other specified joint disorders, right shoulder
CPT/HCPCS: 73030

== ENCOUNTER 2023-02-17 01:49 | Outpatient (CLI) | payer MEDICARE, BC, SELFPAY ==
[2023-02-17 15:01] LABS: Anion Gap 3.8 mmol/L (3-11); BUN 16 mg/dL (7-18); CO2 32.2 mmol/L (21.0-32.0); Calcium 9.3 mg/dL (8.5-10.1); Chloride 106 mmol/L (98-107); Estimated GFR 59.86 (mL/min/1.73m2); Glucose 118 mg/dL (74-106); Potassium 4.2 mmol/L (3.5-5.1); Sodium 142 mmol/L (136-145); TSH (W/Ref FT4) 0.79 uIU/mL (0.36-3.74)
== END 2023-02-17 01:50 | disposition home or self-care (01) ==
LOC: LBO 01:49
PROVIDERS: PCP Nurse Practitioner Family; Visit Provider Nurse Practitioner Family
DX: E03.9 Hypothyroidism, unspecified (principal)
CPT/HCPCS: 36415; 80048; 84443

== ENCOUNTER 2023-03-10 00:40 | Outpatient (CLI) | payer MEDICARE, BC, SELFPAY ==
--- NOTE | 2023-03-10 07:45 | DI.DEXA_ITS ---
Exam(s) XR DEXA BONE DENSITY W/WO DAVID EXAM: XR DEXA BONE DENSITY W/WO DAVID CLINICAL HISTORY: screening for osteoporosis in postmenopausal woman,z78.0 TECHNIQUE: Routine DEXA evaluation of the lumbar spine, hip, or forearm. COMPARISON: Prior DEXA scan performed September 2017. FINDINGS: Performed on a [employer] unit. Lateral image: No compression fracture evident. Lumbar Spine total T-score: -2.7. Prior reading in 2018 was -2 1 Hip total T-score:-1.9. Prior reading in 2018 was -1.6. Independent reading at the level of the femoral neck yields T-score of -2.5 Forearm total T-score: -3.2 IMPRESSION: Bone mineral density measures in the osteoporosis range. Fracture risk is high. Note: Any spine fracture indicates 5x risk for subsequent spine fracture and 2x risk for subsequent h ip fracture. World Health Organization criteria for BMD interpretation classify patients: Normal...... T- Score at or above -1.0 Osteopenic... T- Score between -1.0 and -2.5 Osteoporosis... T-Score at or below -2.5
== END 2023-03-10 01:00 ==
LOC: DI 00:41
PROVIDERS: PCP Nurse Practitioner Family; Visit Provider Nurse Practitioner Family
DX: M81.0 Age-related osteoporosis without current pathological fracture (principal); Z78.0 Asymptomatic menopausal state; Z13.820 Encounter for screening for osteoporosis
CPT/HCPCS: 77080

== ENCOUNTER 2023-04-28 09:48 | Outpatient (CLI) | payer MEDICARE, BC, SELFPAY ==
--- NOTE | 2023-04-28 09:00 | DI.RAD_ITS ---
Exam(s) XR KNEE RT 3V AP,LAT,PEEWEE EXAM: XR KNEE RT 3V AP,LAT,PEEWEE CLINICAL HISTORY: RIGHT KNEE PAIN. TECHNIQUE: 2D digital imaging was performed. Three views. COMPARISON: CR XR WRIST LT LIMITED from 10/11/2022 FINDINGS: BONES: No acute fracture is present. No bony destructive lesion is seen. Enthesophyte at quadriceps insertion on patella. Chronic appearing deformity at the tibial tubercle which appears to be postsu rgical. JOINTS: The joint spaces are maintained. There is spurring at the medial femoral condyle and medial tibial plateau. There is also spurring at the patellofemoral joint is not optimally profiled. The p atella appears inferiorly positioned which could be secondary to prior surgery. No joint effusion is seen. SOFT TISSUE: Normal. IMPRESSION: Degenerative changes, greatest of the patellofemoral joint. DATA REPOSITORY: RADIATION DOSE DELIVERED:
== END 2023-04-28 09:49 | disposition home or self-care (01) ==
LOC: DIORS 09:49
PROVIDERS: PCP Nurse Practitioner Family; Referring Provider Nurse Practitioner Family; Visit Provider Student in an Organized Health Care Education/Training Program
DX: M17.11 Unilateral primary osteoarthritis, right knee
CPT/HCPCS: 20610; 73562; J1040

== ENCOUNTER → 2023-07-12 03:19 | Outpatient (CLI) | payer MEDICARE, BC, SELFPAY ==
--- NOTE | 2023-07-12 06:45 | DI.MRI_ITS ---
Exam(s) MR LOWER JOINT RT WO EXAM: MR LOWER JOINT RT WO CLINICAL HISTORY: PAIN,oa rt knee, m17.11. TECHNIQUE: Multiplanar multisequence MRI was performed. COMPARISON: MR MRI R LOWER JOINT WO CONT from 12/31/2015 CR XR KNEE RT 3V AP,LAT,PEEWEE from 04/28/2023 FINDINGS: The examination is limited due to patient motion artifact. This particularly affects the coronal fat -suppressed proton density images. BONES: There is no fracture or contusion pattern. JOINTS: There are degenerative changes seen at the patellofemoral joint with cartilage loss and osteo phytes present. There is a small effusion. TENDONS: Extensor mechanism: Unremarkable. Medial retinaculum: Unremarkable. Lateral retinaculum: Unremarkable. Popliteus: Unremarkable. MUSCLES: Unremarkable. MENISCI: Evaluation of the menisci is limited on the coronal images. No gross evidence of a tear is seen. The medial meniscus is unremarkable. The lateral meniscus is unremarkable. SOFT TISSUES: There is a 1.8 x 5.7 cm popliteal cyst. LIGAMENTS: Anterior Cruciate: Unremarkable. Posterior Cruciate: Unremarkable. Medial Collateral:There is fluid seen around the medial collateral ligament suggesting a sprain. No evidence of a complete tear is seen. Lateral Collateral: Unremarkable. OTHER: IMPRESSION: 1. Suboptimal examination secondary to patient motion artifact. 2. Tricompartment degenerative changes. The findings are most marked in the patellofemoral joint. 3. No definite evidence of a meniscal or ligament tear. 4. MCL sprain. 5. 1.8 x 5.7 cm popliteal cyst. 6. Small joint effusion. DATA REPOSITORY:
== END ==
PROVIDERS: PCP Nurse Practitioner Family; Visit Provider Student in an Organized Health Care Education/Training Program
DX: M17.11 Unilateral primary osteoarthritis, right knee (principal)
CPT/HCPCS: 73721

== ENCOUNTER → 2023-07-17 10:45 | Outpatient (BNVA) | payer MEDICARE, BC, SELFPAY | PROVIDERS: PCP Nurse Practitioner Family; Referring Provider Nurse Practitioner Family; Visit Provider Student in an Organized Health Care Education/Training Program | DX: M17.11 Unilateral primary osteoarthritis, right knee (principal); M70.51 Other bursitis of knee, right knee | CPT/HCPCS: 20610; J1030 ==

== ENCOUNTER 2023-10-02 05:10 | Outpatient (CLI) | payer MEDICARE, BC, SELFPAY ==
[2023-10-02 15:45] LABS: HCT 38.4 % (36.0-46.0); HGB 12.7 g/dL (11.2-15.7); MCH 30.5 pg (27.0-33.0); MCHC 33.1 % (32.0-36.0); MCV 92 fL (80-95); Platelet Count 281 10^3/uL (130-400); RBC 4.16 10^6/uL (3.93-5.22); RDW 13.5 % (11.7-14.6); RDW-SD 45.8 fL
[2023-10-02 16:38] LABS: Anion Gap 6.4 mmol/L (3-11); BUN 20 mg/dL (7-18); CO2 29.6 mmol/L (21.0-32.0); Calcium 9.3 mg/dL (8.5-10.1); Chloride 104 mmol/L (98-107); Estimated GFR 59.49 (mL/min/1.73m2); Glucose 96 mg/dL (74-106); Sodium 140 mmol/L (136-145)
== END 2023-10-02 05:11 | disposition home or self-care (01) ==
LOC: LBO 05:10
PROVIDERS: PCP Nurse Practitioner Family; Visit Provider Student in an Organized Health Care Education/Training Program
DX: M17.11 Unilateral primary osteoarthritis, right knee (principal); Z01.818 Encounter for other preprocedural examination
CPT/HCPCS: 36415; 80048; 85027; 77073

== ENCOUNTER 2023-10-02 14:48 | Outpatient (CLI) | payer MEDICARE, BC, SELFPAY ==
--- NOTE | 2023-10-02 14:15 | DI.RAD_ITS ---
Exam(s) XR STANDING ALIGNMENT EXAM: XR STANDING ALIGNMENT CLINICAL HISTORY: TKR Planning. TECHNIQUE: 2D digital imaging was performed. Four images were obtained. COMPARISON: CR XR KNEE RT 3V AP,LAT,PEEWEE from 04/28/2023 FINDINGS: BONES: The hips are well maintained. There are mild degenerative changes seen in the right knee part icularly the medial femoral tibial joint. The left knee is well maintained. The ankles are well tracy ntained.There is no significant leg length discrepancy. SOFT TISSUE: Normal. IMPRESSION: Mild degenerative changes of the right knee. DATA REPOSITORY: RADIATION DOSE DELIVERED:
== END 2023-10-02 14:49 | disposition home or self-care (01) ==
LOC: DIORS 14:49
PROVIDERS: PCP Nurse Practitioner Family; Visit Provider Physician Assistant
DX: M17.11 Unilateral primary osteoarthritis, right knee (principal); Z01.818 Encounter for other preprocedural examination
CPT/HCPCS: 77073

== ENCOUNTER 2023-10-18 07:09 | Day surgery (SDC) | payer MEDICARE, BC, SELFPAY ==
[2023-10-18] VITALS (9 sets, daily range): BP systolic 112–155; BP diastolic 55–77; PULSE 44–51; RESP 11–16; TEMP 36.2–36.6; O2SAT 94–100; BMI 21.3
[2023-10-18] MEDS: Acetaminophen 500 MG TAB 1000 MG PO (07:50)
[2023-10-18] MEDS: Celecoxib 200 MG CAP 400 MG PO (07:50)
[2023-10-18] MEDS: Gabapentin 300 MG CAP PO (07:51)
[2023-10-18] MEDS: Lactated Ringers 1,000 ML 80 ML IV (07:51)
--- NOTE | 2023-10-18 08:01 | W.ANESPRE ---
General Info Date of Service Date Performed: 10/18/23 Height: 5 ft 8 in Weight: 63.588 kg Body Mass Index (BMI): 21.3 Surgical Procedure: Operation Date: 10/18/23 09:25 Proposed Procedure Side Surgeon p Knee Total Arthroplasty, Cementless CR Right Alejandro Mendoza MD Meds Allergies and Home Medications Allergies Allergy/AdvReac Type Severity Reaction Status Date / Time ciprofloxacin HCl AdvReac dizzy, Verified 10/18/23 07:17 [From Cipro] confusion metronidazole [From Flagyl] AdvReac dizzy, Verified 10/18/23 07:17 confusion Home Medication Medication Instructions Recorded Vitamin B Complex 1 tab-cap PO DAILY 09/26/13 cholecalciferol (vitamin D3) 25 1,000 unit PO DAILY 11/06/17 mcg (1,000 unit) capsule (Vitamin D3) amitriptyline 10 mg tablet 10 mg PO QHS #90 tabs 02/24/23 levothyroxine 100 mcg tablet 100 mcg PO DAILY #90 tab-caps 02/24/23 Current Visit Medications: Current Medications Generic Name Dose Route Start Last Admin Trade Name Freq PRN Reason Stop Dose Admin Acetaminophen 1,000 mg 10/18/23 06:00 10/18/23 07:50 Acetaminophen 500 Mg Tab PO 11/17/23 05:59 1,000 mg PREOP DESHAUN Administration Acetaminophen 1,000 mg 10/18/23 07:32 Acetaminophen 500 Mg Tab PO 11/17/23 07:31 TID PRN PRN Analgesia Celecoxib 400 mg 10/18/23 06:00 10/18/23 07:50 Celecoxib 200 Mg Cap PO 11/17/23 05:59 400 mg PREOP DESHAUN Administration Docusate Sodium 100 mg 10/18/23 07:32 Docusate Sodium 100 Mg Cap PO 11/17/23 07:31 BID PRN PRN Constipation Gabapentin 300 mg 10/18/23 06:00 10/18/23 07:51 Gabapentin 300 Mg Cap PO 11/17/23 05:59 300 mg PREOP DESHAUN Administration Tranexamic Acid 1,000 mg/ 60 mls @ 360 mls/hr 10/18/23 06:00 Sodium Chloride IVPB 10/18/23 23:59 PREOP DESHAUN Ringer's Solution 1,000 mls @ 80 mls/hr 10/18/23 06:00 10/18/23 07:51 IV 10/18/23 23:59 80 mls/hr INFUSION DESHAUN Administration Cefazolin Sodium/Dextrose 2 gm in 50 mls @ 100 mls/hr 10/18/23 06:00 Ancef Duplex IVPB 10/18/23 23:59 PREOP DESHAUN IV Miscellaneous Supplies 1 each 10/18/23 06:00 Iv Access IV 10/18/23 23:59 DIRECTED DESHAUN Ondansetron HCl 4 mg 10/18/23 07:32 Ondansetron 4 Mg/2 Ml Vial IVP 11/17/23 07:31 Q6H PRN PRN Nausea Oxycodone HCl 0 mg 10/18/23 07:32 Oxycodone 5 Mg Tab PO 11/17/23 07:31 Q3H PRN PRN Pain Polyethylene Glycol 17 gm 10/18/23 07:32 Polyethylene Glycol 3350 17 Gm Packet PO 11/17/23 07:31 BID PRN PRN Constipation Sodium Chloride 0 ml 10/18/23 06:00 Normal Saline Flush 10 Ml Syr IV 10/18/23 23:59 PRN PRN Sodium Chloride 0 ml 10/18/23 06:00 Normal Saline 10 Ml Vial IJ 10/18/23 23:59 DIRECTED PRN Sterile Water 0 ml 10/18/23 06:00 Water,Injection,Sterile 10 Ml Vial IJ 10/18/23 23:59 DIRECTED PRN PFSH Active Problems Active Problems: Problem Status Onset Code Pes anserinus bursitis of right knee M70.51 Osteoarthritis of right knee M17.11 Hypothyroidism E03.9 Osteoporosis M81.0 CKD (chronic kidney disease) stage 3, GFR 30-59 ml/min N18.30 Generalized anxiety disorder F41.1 Carpal tunnel syndrome of left wrist G56.02 Arthritis of carpometacarpal (CMC) joint of left thumb M18.12 Macular hole of left eye H35.342 Medical History Medical History Infectious colitis Closed fracture of left distal radius (08/29/22) Prediabetes Surgical History Surgical History S/P partial thyroidectomy For benign thyroid tumor S/P lumpectomy, right breast Noncancerous S/P nasal septoplasty S/P right knee arthroscopy History of bilateral ligation of fallopian tubes Status post tonsillectomy and adenoidectomy Tobacco Smoking/Tobacco Use Status: Never Passive smoking exposure: Yes Second hand exposure: No Alcohol Alcohol Intake: current Alcohol intake frequency: a few times a week Alcohol type: hard liquor Substance Use Substance use: Never Substance use type: does not use Vital Signs and Lab Results Vital Signs Most Recent Vital Signs in EMR: Most Recent Vital Signs Temp Pulse Resp BP Pulse Ox 36.3 C L 50 L 16 155/77 H 99 10/18/23 07:21 10/18/23 07:21 10/18/23 07:21 10/18/23 07:21 10/18/23 07:21 Lab Results Blood Type / Crossmatch: No Data to Display Complete Blood Count: White Blood Count 4.50 10^3/uL (4.4-10.8) 10/02/23 15:33 Red Blood Count 4.16 10^6/uL (3.93-5.22) 10/02/23 15:33 Hemoglobin 12.7 g/dL (11.2-15.7) 10/02/23 15:33 Hematocrit 38.4 % (36.0-46.0) 10/02/23 15:33 Platelet Count 281 10^3/uL (130-400) 10/02/23 15:33 Complete Metabolic Panel: Sodium 140 mmol/L (136-145) 10/02/23 15:33 Potassium 4.0 mmol/L (3.5-5.1) 10/02/23 15:33 Chloride 104 mmol/L (98-107) 10/02/23 15:33 Carbon Dioxide 29.6 mmol/L (21.0-32.0) 10/02/23 15:33 BUN 20 mg/dL (7-18) H 10/02/23 15:33 Creatinine 1.0 mg/dL (0.55-1.02) 10/02/23 15:33 Est GFR (CKD-EPI 2020) 59.49 (mL/min/1.73m2) 10/02/23 15:33 Calcium 9.3 mg/dL (8.5-10.1) 10/02/23 15:33 Glucose 96 mg/dL (74-106) 10/02/23 15:33 Liver Function Panel: No Data to Display Coagulation Panel: No Data to Display Cardiac Panel: No Data to Display Arterial Blood Gas: No Data to Display Venous Blood Gas: No Data to Display Pancreas Panel: No Data to Display Thyroid Panel: No Data to Display Infectious Disease: No Data to Display Blood Cultures: No Data to Display Toxicology Panel: No Data to Display Imaging and Studies Imaging and Studies Study information below may be from another EMR and interpreted by another provider. Please see original notes in EMR for more complete details. Carotid Artery Summary:: Date of Exam: 02/13/19 Sex: F Admission Date: 02/13/19 : 1950 Age: 68 Exam(s) a US:US carotid SYMPTOM/DIAGNOSIS: CAROTID BRUIT, R09.89, DIZZINESS, RT ARM AND LEG TINGLING CAROTID ULTRASOUND: Minimal plaque is noted in the common carotid bulbs. Velocity measurements obtained in the internal carotid arteries are within the normal range. Both vertebral arteries show antegrade flow. The external carotid arteries are also unremarkable. IMPRESSION: Minimal plaque. No significant internal carotid artery stenosis. Anesthesia Assessment and Plan Anesthesia History Personal History: No History of Anesthesia Complications Family History: No Family History of Anesthesia Complications Exercise Tolerance Exercise Tolerance: Metabolic Equivalents>4 Pertinent Negatives Pertinent Negatives: No Symptoms of GERD, No Major Cardiovascular Symptoms or Complaints and No Major Pulmonary Symptoms or Complaints Cardiac & Pulmonary Exam Cardiac Exam: Normal S1/S2 Heart Sounds Pulmonary Exam: Clear Bilateral Breath Sounds Implantable Cardiac Device Does patient have a Pacemaker or an ICD?: No Airway Exam Known Difficult Airway: No Mallampati Class: 2 Mouth Opening: Normal (> 3cm) Thyromental Distance: Greater than 3 cm Neck Range of Motion: Full ROM Neck Circumference: Normal Teeth Condition: Normal Dentition ASA Classification ASA Score: ASA 2 Emergency Case?: No NPO Status NPO Status: NPO Clears >2 hours, Solids >8 hours Anesthesia Plan Resuscitation Status: Full Code Anesthesia Technique: Spinal Anesthesia Airway Planned: Natural Airway Pain Management: Surgeon and patient request nerve block Monitors Used: Standard Monitors
--- NOTE | 2023-10-18 08:41 | W.ANESNERVE ---
Nerve Block Single Injection Procedure Date and Time Date Performed: 10/18/23 Procedure Start: 08:20 Location Where Procedure Performed Procedure Location: Day Surgery Unit Reason Performed: Postoperative Analgesia Requesting Provider: Alejandro Mendoza Timeout Performed Timeout Performed: Yes Monitoring Used ECG, Blood Pressure, SpO2 and See EMR for corresponding vital signs Sterility Sterility: Hand Hygiene, Surgical Cap, Surgical Mask, Sterile Gloves and Chlorhexidine Sedation Given During Procedure Sedation Given (Indicate Dose Given): No Sedation given Patient Mental Status Patient Mental Status: Awake Nerve Block 1st Nerve Block: Laterality: Right Block Type: Adductor Canal Ultrasound Image Saved?: Yes Needle / Catheter Used: 100mm SonoPlex II Local Anesthetic Bolus (Indicate Dose Given): Lidocaine used for local infiltration of skin, Injected in 3-5ml increments after negative blood aspiration and Bupivacaine 0.25% Dose:: 20ml Additives (Indicate Dose Given): None Ultrasound: Sterile probe cover and gel used Nerve Stimulator: Not Used Paresthesia: None Procedure Tolerated: No Complications and Patient tolerated well Procedure Outcome: Successful Performed By: Neeraj Knowles
[2023-10-18] MEDS: ceFAZolin 2 GM/50 ML BAG IVPB (09:23)
--- NOTE | 2023-10-18 11:21 | PDOC.DSDIS_ITS ---
Date of service: 10/18/23 Time of Service: 11:22 Discharge Plan Disposition Patient Disposition: Home Condition: Good Discharge Details Reason For Visit: R TKR Attending Provider: Alejandro Mendoza Primary Care Provider: Anita Arriola Home Meds and New Rx's Prescriptions: New celecoxib 200 mg capsule 200 mg PO BID Qty: 60 0RF aspirin 81 mg tablet,delayed release (DR/EC) 81 mg PO BID Qty: 60 0RF acetaminophen 500 mg tablet 1,000 mg PO TID Qty: 90 3RF pantoprazole 40 mg tablet,delayed release (DR/EC) 40 mg PO DAILY Qty: 30 0RF dexamethasone 4 mg tablet 4 mg PO DAILY Qty: 2 0RF gabapentin 300 mg capsule 300 mg PO QHS Qty: 14 0RF oxycodone 5 mg tablet 5 mg PO Q4H MDD 6 tabs PRN (Reason: pain) Qty: 20 0RF Continued amitriptyline 10 mg tablet 10 mg PO QHS Qty: 90 3RF VITAMIN B COMPLEX 1 EACH tablet 1 tab-cap PO DAILY levothyroxine 100 mcg tablet 100 mcg PO DAILY Qty: 90 3RF cholecalciferol (vitamin D3) [Vitamin D3] 1,000 UNIT capsule 1,000 unit PO DAILY Discharge Instructions Additional Instructions: Total Knee Discharge Instructions Activity: The most important activity is to walk and to work on gentle motion (both flexion and extension). You should try to take short walks a few times a day. It is important that when resting you work on keeping the knee straight. Avoid putting a pillow behind the knee as this will encourage flexion. Work on range of motion exercises as provided by Physical Therapy. - Start outpatient physical therapy within 2 weeks. - You should wear the JORY hose on both legs for 2 weeks. You may remove these at night. You may also use any compression sock in place of the JORY hose. - Utilize [employer] to review exercises, see videos on exercises and obtain basic information pertaining to your surgery and your recovery. Dressing: Remove the Yogesh wrap by 2 days after your surgery and put on the JORY stocking given to you from the hospital. Keep the surgical dressing (underneath the YOGESH wrap) in place for at least one week. After the first week it may be removed and replaced with light gauze and tape or nothing. The wound and dressing may get wet after 3 days but avoid soaking the dressing or otherwise it will need to be changed. Many people prefer covering the dressing with cling wrap (saran wrap) to minimize it from getting soaked. If it gets wet, just pat dry. If it starts to peel off then it will need to be changed. Medications: - You should take Tylenol and anti-inflammatory Celebrex as your primary pain control medications. If the Celebrex is too expensive or not covered, please call the office for another alternative (Advil/Ibuprofen or Naproxen/Aleve) - You have been prescribed a stronger pain medication Oxycodone for breakthrough pain, take as needed as prescribed. - You have also been prescribed a stomach acid reduction agent Pantoprozole to help reduce stomach acid and reflux. - You have been prescribed Gabapentin to take at night for restlessness and nerve pain. - You will be taking Aspirin 81mg twice a day for DVT prevention unless instructed otherwise. - You have also been prescribed Decadron to take to control post-operative nausea and pain. You will start this tomorrow. - If you have constipation you should take Colace or Miralax (both [id number]). It takes most people 3-4 days to have a bowel movement. Follow-up: 2 weeks If you have any acute concerns or questions, please do not hesitate to contact the office at [phone]. You may contact Dr. Mendoza with any questions after hours through the hospital at [phone] or on his cell phone at [phone]. Referrals: Alejandro Mendoza MD [ [facility] STAFF PHYSICIAN] - Equipment/Supplies: Walker Activity:: Activity as Tolerated Shower/Bathe:: 72 hours Diet:: As Tolerated DS: Diagnosis Discharge Diagnosis (1) Osteoarthritis of right knee: Status: Acute
--- NOTE | 2023-10-18 11:33 | W.PM.OP ---
Date of service: 10/18/23 Time of Service: 09:30 Operative Note Operative Note DATE OF PROCEDURE: 10/18/23 PRE-OP DIAGNOSIS: Right Knee Osteoarthritis POST-OP DIAGNOSIS: same PROCEDURE: Right Total Knee Replacement SURGEON: Alejandro Mendoza BATCH MIXING TRUCK DRIVER: Alexa Espinoza ANESTHESIA TYPE: Spinal Refer to Anesthesia Record ESTIMATED BLOOD LOSS: 100 PATHOLOGY: none sent TOURNIQUET TIME: 0 COMPLICATIONS: None Patient was transported to: PACU Patient's condition: stable Implants: 1. Depuy Attune Cementless Cruciate Retaining Femoral Component, Size 6 2. Depuy Attune Cementless Fixed Bearing Tibial Component, Size 6 3. Depuy Attune 6x6 CR/FB Poly 4. Depuy Attune Patellar Component, Size 35 Indications: I have seen PATTI in clinic for symptoms of knee arthritis, confirmed with radiographic findings. She has exhausted nonoperative methods and was having significant limitations in daily function and desired better function and less pain. I discussed the technical details of a knee replacement. I explained the risks of the procedure to include, but not limited to, bleeding, infection, pain, stiffness, fracture, damage to nerves and vessels, damage to muscles and tendons, loosening, need for repeat procedure, blood clot and cardiopulmonary demise. Despite these risks, PATTI elected to proceed. Findings: There was significant signs of arthritis throughout the knee. There was also significant patella baja from previous patella/tibial tubercle surgery. Procedure Description: PATTI was greeted in the preoperative holding area where the correct side was identified and marked. The consent was reviewed with the patient and signed. The history and physical was updated. All questions were answered. Preoperative medications were administered: Acetaminophen 1000mg, Celebrex 400mg, and Gabapentin 300mg. An adductor canal block was then administered by the anesthesia team in the PACU. PATTI was taken back to the operating room. A spinal anesthestic was then administered. The patient was placed into the supine position on the operating room table. A nonsterile tourniquet was placed high onto the leg but only used for cementing. Posts were placed for positioning during the procedure. All bony prominences were well padded. Prophylactic antibiotics in the form of Cefazolin were administered. 1g of Tranxemic Acid was given intravenously within 30 minutes of incision. The right leg was then prepped with Chloraprep and draped in a standard fashion with impervious stockinette. A second prep with Chloraprep was performed prior to application of Iodine impregnated skin protection. A timeout to confirm correct identity, side and site, procedure, allergies, anesthesia, and medical concerns was performed. With the knee in some flexion, a slightly curved incision was made overlying the knee utilizing the previous incision of the distal knee. Full thickness skin flaps were raised once the extensor mechanism was encountered. These were raised medially and laterally. Any bleeding was controlled with electrocautery. Once the extensor mechanism was fully exposed, a medial parapatellar arthrotomy was performed in a flexed position. All bleeding from the arthrotomy and the geniculate arteries was coagulated. A medial subperiosteal peel was performed with electrocautery to the midcoronal plane. The fat pad was removed while keeping the patellar tendon protected. The anterior distal femur synovium was removed for later visualization. The ACL and PCL were resected and the anterior horn of the lateral meniscus was transected. The knee was then flexed with the patella everted. The patella was quite low with soft tissue adhesions between the tibia and the patellar tendon. Using a step drill, and based on preoperative templating, the femoral canal was entered. This was done with a step drill without any difficulty. The intramedullary distal femoral cut guide was inserted, set to a 6 degree valgus cut and 9mm cut thickness. The distal femoral cut guide was then held in position and pinned. With the soft tissues protected, the distal cut was performed. This was passed over a few times to ensure a planar cut. I then turned attention to the tibia. The extramedullary guide was placed onto the leg. The distal aspect was slid medial to adjust for position of center of ankle and stay in line with shaft of the tibia. Approximately 3-5 degrees of posterior slope was kept in the proximal cutting guide. The center of the guide was aligned with the PCL. The stylus was used to assess cut thickness. The medial side was set for a 6 mm cut which corresponded to about 7 to 8 mm laterally. This was then held in position and pinned into place with 2 additional pins and a cross pin for stability. The medial and lateral collateral ligaments were protected and the cut was performed. With this completed, it was assessed and noted to be of appropriate dimensions. The guide was removed. A spacer block was inserted and the knee was brought into extension. The 6mm spacer block provided full extension, without hyperextension and with stability of both the medial and lateral collateral ligaments was assessed. The pins from the femur and the tibia were then removed. The distal femur was then sized. The anterior stylus was placed onto the lateral ridge of the anterior femur. This indicated a size 6 femur. The external rotation of the guide was adjusted to 3 degrees to match the epicondylar axis, perpendicular to Dawson?s line. The 4-in-1 cutting guide was the placed. The posterior medial femur cut was evaluated and appeared of good thickness. The spacer block was inserted underneath the cutting guide and stability was confirmed in 90 degrees of flexion. An olayinka wing was used to confirm appropriate position of the anterior cut to avoid notching. This cutting guide was ensured to be flush on the cut surface and then pinned into place with headed pins. While protecting the soft tissues, quad tendon, and collateral ligaments, the anterior and posterior cuts were performed with a saw. The central two pins were removed and the posterior and anterior chamfers were cut next. The notch-cutting guide was placed. This was pinned to lateralize the femoral component as much as possible while keeping it flush on the cut surface. This was then pinned into position. A reciprocating saw was used to make the notch cut. A rasp smoothed the cut surfaces. The medial and lateral menisci were removed. A trial femoral component was then inserted, impacted down to the cut surfaces, and the lug holes were drilled. A provisional trial tibial component was placed and the knee was brought through range of motion. There was noted to be excellent extension and flexion. There was no significant instability. The patella was tracking without thumbs. A size 6mm polyethylene component provided the best range of motion and stability with less than 2mm gapping with medial and lateral stress and full extension without significant hyperextension. The tibial cut surface was fully exposed. The tibia was then sized as a 6. The tibia had been previously marked during trialing to correspond to the center of the tibial component to help with rotation. The trial was aligned to this alexa, approximately rotated to the medial 1/3rd of the tibial tubercle. The trial was pinned into place. The tibia was prepared with a reamer and a keel punch and lug holes. The knee was then brought into extension and the patella was measured as 24mm. Using the patellar clamp and cut guide, this was resected to a flat surface with at least 13mm of thickness remaining. The size 35 patella fit the best. This was oriented superiorly and laterally and then clamped into position. The lugs were drilled. The trial components were removed. The final components were opened on the back table. The periosteal and capsular tissues, especially posteriorly, around the knee were then systematically injected with a periarticular cocktail consisting of 246mg of Ropivacaine, 0.5mg of Epinephrine, 0.08mg of Clonidine, and 30mg of Ketorolac, diluted to 100cc. On the back table, with the implants opened, the cement was mixed. One batch of high viscosity cement was prepared with vacuum assistance. After the cement was ready a small amount was placed on the cut surface of the patella and the patellar button was clamped into position and held. While the cement was hardening, the cementless knee components were placed. Starting with the tibial component, the tibia was subluxed anteriorly and the lug holes of the component were lined up. The tibia was then impacted with an impactor and mallet until the tibial component was in contact with the tibia. The final polyethylene component was inserted. Then, the femoral component was inserted. The lug holes were aligned and the component was impacted into position. The knee was irrigated with Surgiphor Betadine solution. This was allowed to sit in the knee for 3 minutes and then it was irrigated out with saline. After the cement had finally cured, approximately 15min, the clamp was removed from the patella and the knee was taken through range of motion. The patella was tracking with a no-thumbs technique. The capsule was then reapproximated with a No. 1 Vicryl at multiple locations. The capsule was finally closed with a No. 2 Stratafix, barbed suture. The second dosing of 1g TXA was started. Deep tissues were then reapproximated with 0 Vicryl and 2-0 Vicryl. The skin was closed with a running 3-0 Monocryl in a subcuticular fashion. This was reinforced with skin glue. A Mepilex silver dressing was applied along with a [id number] DG wrap. A CryoCuff was applied. MJ was transferred to the hospital bed without difficulty an suffering no apparent complication. MJ has a good prognosis. Physical therapy will start today and without restrictions, weight-bearing as tolerated. Aspirin 81mg BID will be used for DVT prophylaxis.
[2023-10-18] MEDS: oxyCODONE 5 MG TAB PO (12:19)
--- NOTE | 2023-10-18 12:29 | W.ANESPOSTOP ---
Postoperative Evaluation Date, Time and Location Date Performed: 10/18/23 Time Performed: 12:29 Patient Location: Day Surgery Unit Vital Signs Most Recent Imported Vital Signs: Most Recent Vital Signs Temp Pulse Resp BP Pulse Ox 36.6 C 51 L 16 151/63 H 94 10/18/23 11:55 10/18/23 11:55 10/18/23 11:55 10/18/23 11:55 10/18/23 11:55 Pain Score Most Recent Pain Score: Most Recent Pain Score Pain Level 0 10/18/23 11:55 Assessment Mental Status: Awake (Alert & Oriented to Patient Baseline) Airway and Respiratory Function: Patent airway with normal (patient baseline) respiratory exam Cardiovascular Function: Hemodynamically Stable Hydration Status: Adequately Hydrated Nausea & Vomiting: No Nausea or Vomiting Pain: Pt. Denies Any Pain Peripheral Nerve Block: Regional nerve block not resolved at time of post operative discharge
--- NOTE | 2023-10-18 13:06 | IN_ITS ---
PT Notes Visit Reasons: R TKR Physical Therapy Day Surgery Initial Evaluation Date: 10/18/2023 Referring Doctor: BRODIE Crawley PT Orders: PT CONSULT: S/P Ortho surgery Precautions: WBAT on the right LE with AD. Patient Profile/Admitting Diagnosis: PATTI is a 73-year-old female with degenerative joint disease of the right knee and status post right total knee arthroplasty on postoperative day 0. PMHX: Medical History (Updated 07/18/23 @ 13:36 by BRODIE Sen) Infectious colitis Closed fracture of left distal radius (08/29/22) Prediabetes Surgical History (Updated 02/24/23 @ 11:31 by Anita Arriola NP) S/P partial thyroidectomy For benign thyroid tumor S/P lumpectomy, right breast Noncancerous S/P nasal septoplasty S/P right knee arthroscopy History of bilateral ligation of fallopian tubes Status post tonsillectomy and adenoidectomy Social History/Home Situation: Lives with significant other in a private home with 2-3 steps to enter with a rail on one side. There is a flight of steps to the bedroom of her house. Daughters live close by and will be very good support as patient recovers. Plays hockey once a week. Independent with all aspects of ADLs prior to surgery although has had increasing difficulty with mobility ADL performance due to right knee DJD. Equipment Owned/DME: [facility] Subjective: Reports like her right quad has been pulled. Agreeable to get moving with PT. Mildly lightheaded when she sat up edge of bed. Reports 1/10 pain in the right knee. Denied headache and chest pain throughout session. Objective: General Observation: Resting in bed. Daughter Alecia present throughout session. Yogesh wraps to right LE. Cryo/Cuff to right knee. TDS to left leg. Mental Status: Alert and oriented x 4 Pain: As above ROM: Right Lower Extremity: Hip flexion only able to do the first 25% of AROM. Hip abduction WFL. Knee flexion allows up to -45 degrees to 90 degrees in [place] while seated at edge of bed. Ankle dorsiflexion WFL. Ankle plantarflexion WFL. Unable to do SLR at this time. Left Lower Extremity: Hip flexion WFL. Hip abduction WFL. Knee flexion WFL. Ankle dorsiflexion WFL. Ankle plantarflexion WFL. Strength: Right Lower Extremity: Hip flexors 3-/5. Hip abductors 4-/5. Knee flexors 3-/5. Knee extensors 3-/5. Ankle dorsiflexors 4-/5. Ankle plantarflexors 4-/5. Left Lower Extremity:Hip flexors 5/5. Hip abductors 5/5. Knee flexors 5/5. Knee extensors 5/5. Ankle dorsiflexors 5/5. Ankle plantarflexors 5/5. Sensation: Intact as to pain and light pressure in bilateral lower extremities Bed Mobility/Transfers: Minimal cueing provided for use of B hands as needed for support, movement sequence, AD management, and posture to reduce fall risk and minimize pain report. Supine to sit standby assist Sit to stand standby assist with FWW Stand to sit standby assist with FWW Bed to chair standby assist with FWW Gait: Facilitated safe and correct performance of level surface ambulation covering a distance of 150 feet using front wheeled walker with reciprocal step through gait pattern requiring only standby assist with good quad activation and terminal extension on the right during mid stance, no LOB. Minimal cueing provided for increased knee flexion on the right during swing phase, movement sequence, AD management, and posture to reduce fall risk and minimize pain report. Stairs: Guided patient with safe and correct negotiation 3 x 4 inch steps and 2 x 6 inch steps while holding onto bilateral rails with step through gait pattern requiring only standby assist with minimal verbal cueing to increase knee flexion on the right during each ascent, limb but sequence, and posture to reduce fall risk and minimize pain report. Balance: Static Sitting: Normal Dynamic Sitting: Normal Static Standing: Fair Dynamic Standing: Fair Special Tests: Mobility Limitations Standardized Measure [facility] 6 clicks Basic Mobility Inpatient Short Form: Raw Score: 24 CMS Score: 0% deficit Informed Consent/Education: Patient instructed in purpose of PT consult. Packet containing TKA exercise protocol has been given to patient. Education and training on initial set of exercises that can be done at home have been completed with patient. Trained patient with correct performance of exercises below to maximize motor control, joint flexibility, soft tissue extensibility of the R knee musculature: Access Code: [email or web address] URL: [email or web address] Date: 10/18/2022 Prepared by: Salome Petit Exercises - Supine Quad Set - 1 x daily - 7 x weekly - 1 sets - 10 reps - 5 hold - Supine Heel Slide - 1 x daily - 7 x weekly - 1 sets - 10 reps - 5 hold - Supine Ankle Pumps - 1 x daily - 7 x weekly - 1 sets - 10 reps - 5 hold - Small Range Straight Leg Raise - 1 x daily - 7 x weekly - 1 sets - 10 reps - 5 hold - Seated March - 1 x daily - 7 x weekly - 1 sets - 10 reps - 5 hold Assessment: Patient requires use of a front wheel walker for mobility ADL performance maximize independence and reduce fall risk. Right quad held up well during ambulation activity although early on limited ability of patient to perform SLR and LAQ while seated. Patient presents with clinical signs and symptoms consistent with current/admitting diagnoses that have resulted to mobility limitations, gait instability, generalized weakness, and impairment of motor control as demonstrated by the following impairment level findings: 1. Decreased strength to right knee major muscle groups 2. Impaired standing balance 3. Limitation of joint range of motion in right knee Impairments are contributing to the following functional limitations: 1. Inability to safely ambulate without assistive device 2. Increase completion time for mobility ADL performance 3. Increased fall risk Patient is assessed as a 29532 moderate complexity based on the following: History: 73-year-old female with impairment level findings, functional limitations, and past medical history as indicated above Examination: Demonstrable impairment in strength, balance, and mobility level with underlying impairments and functional limitations as documented above Presentation: [employer] moderate compexity Goals: N/A. PT evaluation and 1-2 treatment sessions only for functional mobility training using recommended AD and for HEP instruction. Plan of Care/Treatment Plan: N/A. PT evaluation and 1-2 treatment session only for functional mobility training using recommended AD and for HEP instruction. DISCHARGE RECOMMENDATIONS: Home when medically cleared by orthopedic surgeon. Recommend outpatient PT services in order to optimize functional mobility outcomes and facilitate return to independent community ambulation without an assistive device. TREATMENT CODE/TIME: 68985 x 20 minutes for 1 unit, 63350 x 18 minutes for 1 unit beginning at 13:06 PM. Thank you for the opportunity to participate in the care of this patient. Please sign an return this page within 30 days if you agree with the above POC. Thank you! Physician Signature Date [facility] Salome Petit PT, DPT, CLT [facility] [place], [place]
== END 2023-10-18 07:10 | disposition home or self-care (01) ==
PROVIDERS: PCP Nurse Practitioner Family; Visit Provider Student in an Organized Health Care Education/Training Program
PROC: (CPT 27447; principal; 2023-10-18 09:15)
DX: M17.11 Unilateral primary osteoarthritis, right knee (principal); E03.9 Hypothyroidism, unspecified; N18.30 Chronic kidney disease, stage 3 unspecified; M81.0 Age-related osteoporosis without current pathological fracture; R73.03 Prediabetes
CPT/HCPCS: 27447; C1776; 76942; 97162; 97530; J0665; J0690; J1100; J2250; J2371; J2401; J2405; J2704

== ENCOUNTER 2023-11-02 11:49 | Outpatient (CLI) | payer MEDICARE, BC, SELFPAY ==
--- NOTE | 2023-11-02 11:44 | DI.RAD_ITS ---
Exam(s) XR STANDING ALIGNMENT XR KNEE RT 1V EXAM: XR STANDING ALIGNMENT CLINICAL HISTORY: 1ST POST OP R TKA. TECHNIQUE: 2D digital imaging was performed. Standing AP views were performed from the pelvis throu gh the ankles. Lateral view of the right knee COMPARISON: CR XR STANDING ALIGNMENT from 10/02/2023 CR XR KNEE RT 1V from 11/02/2023 FINDINGS: BONES: No acute fracture is present. No bony destructive lesion is seen. Leg length discrepancy: No significant at overall leg length discrepancy. JOINTS: Knees: Right total knee prosthesis has placed since the prior exam. The alignment appears sa tisfactory. No surrounding abdomen bony lucencies. The left knee joint spaces are maintained. The ankle joints are unremarkable. The hip joints are unremarkable. SOFT TISSUE: Normal. IMPRESSION: Status post placement right total knee prosthesis. No significant leg length discrepancy. DATA REPOSITORY: RADIATION DOSE DELIVERED:
== END 2023-11-02 11:50 | disposition home or self-care (01) ==
LOC: DIORS 11:50
PROVIDERS: PCP Nurse Practitioner Family; Visit Provider Physician Assistant
DX: Z96.651 Presence of right artificial knee joint (principal); Z47.1 Aftercare following joint replacement surgery
CPT/HCPCS: 73560; 77073

== ENCOUNTER → 2023-11-20 13:50 | Outpatient (BNVA) | payer MEDICARE, BC, SELFPAY | PROVIDERS: PCP Nurse Practitioner Family; Referring Provider Nurse Practitioner Family; Visit Provider Student in an Organized Health Care Education/Training Program | DX: Z47.1 Aftercare following joint replacement surgery (principal); Z96.651 Presence of right artificial knee joint ==

== ENCOUNTER → 2024-01-01 09:58 | Outpatient (BNVA) | payer MEDICARE, BC, SELFPAY | PROVIDERS: PCP Nurse Practitioner Family; Visit Provider Student in an Organized Health Care Education/Training Program | DX: Z47.1 Aftercare following joint replacement surgery (principal); Z96.651 Presence of right artificial knee joint ==

== ENCOUNTER → 2024-01-09 14:14 | Outpatient (BNVA) | payer MEDICARE, BC, SELFPAY | PROVIDERS: PCP Nurse Practitioner Family; Referring Provider Nurse Practitioner Family; Visit Provider Student in an Organized Health Care Education/Training Program | DX: M19.011 Primary osteoarthritis, right shoulder (principal); M19.042 Primary osteoarthritis, left hand | CPT/HCPCS: 99213 ==

== ENCOUNTER → 2024-02-08 02:35 | Outpatient (CLI) | payer MEDICARE, BC, SELFPAY ==
--- NOTE | 2024-02-08 08:15 | DI.RAD_ITS ---
Exam(s) RF JOINT INJ. FLUORO GUID RAD EXAM: RF JOINT INJ. FLUORO GUID RAD CLINICAL HISTORY: R SHOULDER PAIN,fluoro guided injection,arthritis,m19.011. TECHNIQUE: 2D and realtime digital imaging was performed. CONTRAST MATERIAL: Omnipaque 300-3 cc COMPARISON: No exams were available for comparison FINDINGS: FLUOROSCOPIC GUIDED RIGHT SHOULDER THERAPEUTIC STEROID INJECTION Patient was consented prior to this procedure. Patient was placed in supine position on the fluoroscopy table. Using sterile technique and adequate skin-subcutaneous anesthesia, fluoroscopic guidance was used to advance a 22 gauge spinal needle into the glenohumeral joint via an anterior approach. Intra-articula r position of the needle was confirmed with contrast injection. Thereafter, a sterile solution of 80 milligrams methylprednisolone and 3 cc bupivacaine was injected into the intra-articular compartment. Patient tolerated this procedure well and there were no intraprocedural complications IMPRESSION: Successful fluoroscopic guided right shoulder glenohumeral joint therapeutic steroid injection. RADIATION DOSE DELIVERED: Ka,r=0.855mGy
[2024-02-08] MEDS: Lidocaine 1% Multi-Dose 50 ML VIAL IJ (15:06)
[2024-02-08] MEDS: Omnipaque 300 MG/ML 10 ML BTL IJ (15:07)
[2024-02-08] MEDS: Bupivacaine 0.5% Pres-Free 10 ML VIAL 25 ML IJ (15:11)
[2024-02-08] MEDS: methylPREDNISolone ACETATE 80 MG/ML VIAL IM (15:12)
== END ==
PROVIDERS: PCP Nurse Practitioner Family; Visit Provider Student in an Organized Health Care Education/Training Program
DX: M19.011 Primary osteoarthritis, right shoulder (principal)
CPT/HCPCS: 20610; 77002; J0665; J1010

== ENCOUNTER 2024-02-09 01:56 | Outpatient (CLI) | payer MEDICARE, BC, SELFPAY ==
[2024-02-09 10:10] LABS: ALT 26 U/L (14-59); AST 29 U/L (15-37); Alkaline Phosphatase 79 U/L (46-116); Anion Gap 6.4 mmol/L (3-11); BUN 17 mg/dL (7-18); Bilirubin, Total 0.5 mg/dL (0.2-1.0); CO2 28.6 mmol/L (21.0-32.0); Calcium 9.2 mg/dL (8.5-10.1); Chloride 104 mmol/L (98-107); Estimated GFR 59.49 (mL/min/1.73m2); Glucose 136 mg/dL (74-106); Potassium 4.1 mmol/L (3.5-5.1); Sodium 139 mmol/L (136-145); Total Protein 7.5 g/dL (6.4-8.2)
[2024-02-09 10:19] LABS: Cholesterol 188 mg/dL (<200); HDL Cholesterol 118 mg/dL (40-60); TSH (W/Ref FT4) 0.55 uIU/mL (0.36-3.74)
[2024-02-09 10:23] LABS: Triglyceride <25 mg/dL (<150)
[2024-02-09 10:31] LABS: Vitamin D 25 Total 86.3 ng/mL (30-100)
[2024-02-09 10:34] LABS: LDL CHOLESTEROL 64 mg/dL (<100)
[2024-02-09 19:04] LABS: Parathyroid Hormone,Intact 46 pg/mL (19-88)
[2024-02-09 19:45] LABS: Hepatitis C Ab w Rflx HCV PCR Negative (Negative)
== END 2024-02-09 01:57 | disposition home or self-care (01) ==
PROVIDERS: PCP Nurse Practitioner Family; Visit Provider Internal Medicine Endocrinology, Diabetes & Metabolism
DX: E03.9 Hypothyroidism, unspecified (principal); M81.0 Age-related osteoporosis without current pathological fracture
CPT/HCPCS: 36415; 80053; 80061; 82306; 83721; 86803; 83970; 84443

== ENCOUNTER → 2024-03-06 00:32 | Outpatient (CLI) | payer MEDICARE, BC, SELFPAY ==
--- NOTE | 2024-03-06 06:45 | DI.CT_ITS ---
Exam(s) CT UPPER EXTREMITY RT WO EXAM: CT UPPER EXTREMITY RT WO CLINICAL HISTORY: SURGICAL PLANNING-KOR PROTOCOL, arthritis rt glenohumeral joint, M19.011 TECHNIQUE: Imaging Protocol: Axial computed tomography images with coronal and sagittal reformatted images were created and reviewed. CONTRAST MATERIAL: Intravenous: None COMPARISON: CR XR SHOULDER RT COMPLETE 2+V from 10/21/2022 FINDINGS: OSSEOUS: No evidence of fracture or dislocation. However, there are advanced osteoarthritic degenera tive changes with advanced joint space narrowing of the glenohumeral joint, degenerative subarticular cysts, and a dean-type osteophyte the inferior articular surface of the humeral head. There are al so cysts degenerative subarticular cysts in the greater tuberosity. There are no soft tissue calcifi cations in the subacromial space. AC joint appears unremarkable IMPRESSION: Advanced osteoarthritic degenerative changes in the glenohumeral joint, as described above. No significant findings in the AC joint. RADIATION DOSE DELIVERED: 502.89mGy.cm Total DLP DATA REPOSITORY: All CT scans at this facility are submitted to the National Radiology Data Registry (NRDR) Dose Index Registry (DIR) with the [employer] (A[employer]). RADIATION OPTIMIZATION: All CT scans at this facility use at least one of these dose optimization te chniques: automated exposure control; mA and/or kV adjustment per patient size (includes targeted exa ms where dose is matched to clinical indication); or iterative reconstruction.
== END ==
PROVIDERS: PCP Nurse Practitioner Family; Visit Provider Student in an Organized Health Care Education/Training Program
DX: M19.011 Primary osteoarthritis, right shoulder (principal)
CPT/HCPCS: 73200

== ENCOUNTER → 2024-03-07 14:38 | Outpatient (BNVA) | payer MEDICARE, BC, SELFPAY | PROVIDERS: PCP Nurse Practitioner Family; Referring Provider Nurse Practitioner Family | DX: Z47.1 Aftercare following joint replacement surgery (principal); Z96.651 Presence of right artificial knee joint | CPT/HCPCS: 99213 ==

== ENCOUNTER → 2024-03-12 14:40 | Outpatient (BNVA) | payer MEDICARE, BC, SELFPAY | PROVIDERS: PCP Nurse Practitioner Family; Referring Provider Nurse Practitioner Family; Visit Provider Student in an Organized Health Care Education/Training Program | DX: M19.011 Primary osteoarthritis, right shoulder (principal) | CPT/HCPCS: 99214 ==

== ENCOUNTER 2024-03-14 00:48 | Outpatient (RCR) | payer MEDICARE, BC, SELFPAY ==
[2024-03-14 09:45] VITALS: BP 121/69; PULSE 58; RESP 16; TEMP 36.5; O2SAT 97
[2024-03-14] MEDS: ZOLEDRONIC ACID/MANNITOL/WATER 5 MG/100 ML BTL 200 MG IVPB (09:46)
[2024-03-14] MEDS: Normal Saline Flush 10 ML SYR IVP (09:47)
[2024-03-14 10:15] VITALS: BP 103/64; PULSE 51; RESP 16; TEMP 37; O2SAT 99
== END 2024-03-24 23:59 | disposition home or self-care (01) ==
LOC: INF 00:48
PROVIDERS: PCP Nurse Practitioner Family; Visit Provider Family Medicine
DX: M81.0 Age-related osteoporosis without current pathological fracture (principal)
CPT/HCPCS: 96365; J3489

== ENCOUNTER 2024-05-29 03:08 | Outpatient (CLI) | payer MEDICARE, BC, SELFPAY ==
[2024-05-31 09:49] LABS: HBs Antibody, Quant 4.9 mIU/mL (See Note); Hep B Surface Ab Negative (See Note); Hepatitis B Core Antibody Negative (Negative); Hepatitis B Surface Antigen Negative (Negative)
== END 2024-05-29 03:09 | disposition home or self-care (01) ==
LOC: LBO 03:08
PROVIDERS: PCP Nurse Practitioner Family; Visit Provider Nurse Practitioner Family
DX: Z11.59 Encounter for screening for other viral diseases (principal)
CPT/HCPCS: 36415; 86704; 86706; 87340

== ENCOUNTER 2024-05-31 05:59 | Day surgery (SDC) | payer MEDICARE, BC, SELFPAY ==
[2024-05-31] VITALS (33 sets, daily range): BP systolic 104–158; BP diastolic 51–76; PULSE 48–58; RESP 12–21; TEMP 36–36.7; O2SAT 93–100; BMI 21.6
--- NOTE | 2024-05-31 06:15 | W.ANESPRE ---
General Info Date of Service Date Performed: 05/31/24 Height: 5 ft 7.25 in Weight: 63.049 kg Body Mass Index (BMI): 21.6 Surgical Procedure: Operation Date: 05/31/24 07:40 Proposed Procedure Side Surgeon p Shoulder Reverse Total Arthroplasty, Biceps Tenodesis Right Ashok Fuentes MD Meds Allergies and Home Medications Allergies Allergy/AdvReac Type Severity Reaction Status Date / Time ciprofloxacin HCl (From AdvReac dizzy, Verified 05/31/24 06:17 Cipro) confusion metronidazole (From Flagyl) AdvReac dizzy, Verified 05/31/24 06:17 confusion Home Medication ?Medication ?Instructions ?Recorded Vitamin B Complex 1 tab-cap PO DAILY 09/26/13 cholecalciferol (vitamin D3) 25 1,000 unit PO DAILY 11/06/17 mcg (1,000 unit) capsule (Vitamin D3) levothyroxine 100 mcg tablet 100 mcg PO DAILY #90 tabs 02/09/24 hydroxyzine HCl 25 mg tablet 25 - 50 mg (1 - 2 x 25 mg) PO TID 04/12/24 PRN anxiety #60 tabs zoledronic acid 5 mg/100 mL in 1 device IV .Annually 04/12/24 mannitol 5 %-water intravenous piggybck (Reclast) esomeprazole magnesium 20 mg 20 mg PO DAILY Acid refux 05/29/24 capsule,delayed release (Acid Radio Station Engineer (esomeprazole)) naproxen 250 mg tablet 250 - 500 mg (1 - 2 x 250 mg) PO 05/31/24 BID PRN moderate pain and swelling #40 tabs oxycodone 5 mg tablet 5 - 10 mg (1 - 2 x 5 mg) PO .q4-6h 05/31/24 PRN severe pain #9 tabs Current Visit Medications: Current Medications Generic Name Dose Route Start Last Admin Trade Name Freq PRN Reason Stop Dose Admin Ringer's Solution 1,000 mls @ 30 mls/hr 05/31/24 06:00 IV 06/29/24 23:59 INFUSION DESHAUN Cefazolin Sodium/Dextrose 2 gm in 50 mls @ 100 mls/hr 05/31/24 06:00 Ancef Duplex IVPB 05/31/24 16:00 PREOP DESHAUN Tranexamic Acid/Sodium Chloride 1,000 mg in 100 mls @ 600 mls/hr 05/31/24 06:00 IVPB 05/31/24 16:00 PREOP DESHAUN IV Miscellaneous Supplies 1 each 05/31/24 06:00 Iv Access IV 06/29/24 23:59 DIRECTED DESHAUN Sodium Chloride 0 ml 05/31/24 06:00 Normal Saline Flush 10 Ml Syr IV 06/29/24 23:59 PRN PRN Sodium Chloride 0 ml 05/31/24 06:00 Normal Saline 10 Ml Vial IJ 06/29/24 23:59 DIRECTED PRN Sterile Water 0 ml 05/31/24 06:00 Water,Injection,Sterile 10 Ml Vial IJ 06/29/24 23:59 DIRECTED PRN PFSH Active Problems Active Problems: Problem Status Onset Code Arthritis of hand, left Chronic M19.042 Arthritis of right glenohumeral joint Chronic M19.011 Pes anserinus bursitis of right knee Chronic M70.51 Hypothyroidism Chronic E03.9 Osteoporosis Chronic M81.0 CKD (chronic kidney disease) stage 3, GFR 30-59 ml/min Chronic N18.30 Generalized anxiety disorder Chronic F41.1 Insomnia Chronic G47.00 Carpal tunnel syndrome of left wrist Chronic G56.02 Arthritis of carpometacarpal (CMC) joint of left thumb Chronic M18.12 Macular hole of left eye Chronic H35.342 Medical History Medical History Infectious colitis Closed fracture of left distal radius (08/29/22) Prediabetes Surgical History Surgical History History of total right knee replacement (10/18/23) S/P partial thyroidectomy For benign thyroid tumor S/P lumpectomy, right breast Noncancerous S/P nasal septoplasty S/P right knee arthroscopy History of bilateral ligation of fallopian tubes Status post tonsillectomy and adenoidectomy Tobacco Smoking/Tobacco Use Status: Never Passive smoking exposure: Yes Second hand exposure: No Alcohol Alcohol Intake: current Alcohol intake frequency: a few times a week Alcohol type: hard liquor Substance Use Substance use: Never Substance use type: does not use Vital Signs and Lab Results Vital Signs Most Recent Vital Signs in EMR: Temp Pulse Resp BP Pulse Ox 36.4 C L 57 L 17 152/75 H 97 05/31/24 07:10 05/31/24 07:10 05/31/24 07:10 05/31/24 07:10 05/31/24 07:10 Lab Results Blood Type / Crossmatch: No Data to Display Complete Blood Count: No Data to Display Complete Metabolic Panel: No Data to Display Liver Function Panel: No Data to Display Coagulation Panel: No Data to Display Cardiac Panel: No Data to Display Arterial Blood Gas: No Data to Display Venous Blood Gas: No Data to Display Pancreas Panel: No Data to Display Thyroid Panel: No Data to Display Infectious Disease: Hepatitis B Surface Antigen Pending 05/29/24 15:30 Blood Cultures: No Data to Display Toxicology Panel: No Data to Display Imaging and Studies Imaging and Studies Study information below may be from another EMR and interpreted by another provider. Please see original notes in EMR for more complete details. Carotid Artery Summary:: Date of Exam: 02/13/19 Sex: F Admission Date: 02/13/19 : 1950 Age: 68 Exam(s) a US:US carotid SYMPTOM/DIAGNOSIS: CAROTID BRUIT, R09.89, DIZZINESS, RT ARM AND LEG TINGLING CAROTID ULTRASOUND: Minimal plaque is noted in the common carotid bulbs. Velocity measurements obtained in the internal carotid arteries are within the normal range. Both vertebral arteries show antegrade flow. The external carotid arteries are also unremarkable. IMPRESSION: Minimal plaque. No significant internal carotid artery stenosis. Anesthesia Assessment and Plan Anesthesia History Personal History: No History of Anesthesia Complications Family History: No Family History of Anesthesia Complications Exercise Tolerance Exercise Tolerance: Metabolic Equivalents>4 Pertinent Negatives Pertinent Negatives: No Symptoms of GERD, No Major Cardiovascular Symptoms or Complaints, No Major Pulmonary Symptoms or Complaints and No History of CVA/TIA Cardiac & Pulmonary Exam Cardiac Exam: Known Innocent Murmur Pulmonary Exam: Clear Bilateral Breath Sounds Implantable Cardiac Device Does patient have a Pacemaker or an ICD?: No Airway Exam Known Difficult Airway: No Mallampati Class: 2 Mouth Opening: Normal (> 3cm) Thyromental Distance: Greater than 3 cm Neck Range of Motion: Full ROM Neck Circumference: Normal Teeth Condition: Normal Dentition ASA Classification ASA Score: ASA 2 Emergency Case?: No NPO Status NPO Status: NPO Clears >2 hours, Solids >8 hours Anesthesia Plan Resuscitation Status: Full Code Anesthesia Technique: General Anesthesia Airway Planned: Endotracheal Tube Pain Management: Surgeon and patient request nerve block Monitors Used: Standard Monitors
[2024-05-31] MEDS: Lactated Ringers 1,000 ML 30 ML IV (06:23)
--- NOTE | 2024-05-31 07:05 | W.PM.DSUDISC ---
Date of service: 05/31/24 Time of Service: 11:00 Discharge Plan Disposition Patient Disposition: Home Condition: Stable Discharge Details Attending Provider: Ashok Fuentes Primary Care Provider: Anita Arriola Home Meds and New Rx's Prescriptions: New naproxen 250 mg tablet 250 - 500 mg PO BID PRN (Reason: moderate pain and swelling) Qty: 40 0RF oxycodone 5 mg tablet 5 - 10 mg PO .q4-6h MDD 30 mg PRN (Reason: severe pain) Qty: 9 0RF Continued hydroxyzine HCl 25 mg tablet 25 - 50 mg PO TID PRN (Reason: anxiety) Qty: 60 0RF zoledronic jjvo-tyhrfmao-fotmo [Reclast] 5 mg/100 mL piggyback 1 device IV .Annually VITAMIN B COMPLEX 1 EACH tablet 1 tab-cap PO DAILY levothyroxine 100 mcg tablet 100 mcg PO DAILY Qty: 90 3RF esomeprazole magnesium [Acid Printed Circuit Boards Solder Leveler (esomeprazole)] 20 mg capsule,delayed release(DR/EC) 20 mg PO DAILY cholecalciferol (vitamin D3) [Vitamin D3] 1,000 UNIT capsule 1,000 unit PO DAILY Discharge Instructions Additional Instructions: Surgery: Right reverse total shoulder arthroplasty (rotator cuff preserved and subscapularis repair) with biceps tenodesis Activity: Do not lift anything heavier than a coffee. You should keep your arm at your side in a relatively neutral position at all times except for gentle range of motion exercises, physical therapy, and essential activities. You should use the sling whenever you are out of the house. At home it is best to remove the sling and rest the arm on a pillow at your side or support the operative side with your other hand. A physical therapy prescription will be sent electronically to start in about 3 weeks. CONSERVATIVE Reverse TSA Protocol with subscap repair. Prescriptions: Naproxen 250 mg take 1-2 every 12 hours with a meal as needed for moderate pain Oxycodone 5 mg take 1-2 every 4-6 hours as needed for severe pain You may use pwev-qch-mbcsvhr Tylenol (acetaminophen) as needed for mild pain. These pain medications may be taken all at once or in different combinations as needed. Also, recommend Colace (docusate) as a stool softener as surgery and pain medicine cause constipation. You may try cnec-yat-dttqzzc diphenhydramine (Benadryl) 25-50 mg nightly as a sleep aid Dressings: Leave dressing in place until follow-up. Keep clean and dry at all times. No showers please. Follow-up: 10-[address] Fuentes You may take off the leg compression stockings this evening at home. You may also leave them on a few days longer if you have a history of leg swelling or edema. Please call the office during business hours with any questions or concerns. Let us know right away if you develop any redness, drainage, fevers, chest pain, or trouble breathing. Do not drink alcohol or drive for at least 24 hours after anesthesia. Stand Alone Forms: Anesthesia Discharge Inst., [place].Nerve Block Instructions, Brenda James ([facility]U) Discharge Orders Discharge Orders: Discharge Order (Routine); Ordered 05/31/24 Ordered By: Davina Fisher DS: Diagnosis Discharge Diagnosis (1) Arthritis of right glenohumeral joint: Status: Chronic (2) Tendonitis of long head of biceps brachii of right shoulder: Status: Acute
--- NOTE | 2024-05-31 07:16 | ROE_ITS ---
Date of service: 05/31/24 Time of Service: 07:30 Operative Note Operative Note DATE OF PROCEDURE: 05/31/24 PRE-OP DIAGNOSIS: Right: 1. End-stage glenohumeral arthritis 2. Long head of the biceps tendinopathy POST-OP DIAGNOSIS: same PROCEDURE: Right: 1. Reverse total shoulder arthroplasty, CPT # 06522 2. Open biceps tenodesis, CPT # 39602 The orthopedic physician assistant was medically required as this procedure involves retraction, protection of neurovascular structures, and manipulation of multiple instruments and implants at the same time, which cannot be done without a skilled orthopedic physician assistant. SURGEON: Ashok Fuentes DOPER: Davina Fisher ANESTHESIA TYPE: Local By Surgeon, General LMA/ETT and Primary Nerve Block Refer to Anesthesia Record ESTIMATED BLOOD LOSS: 75 Patient was transported to: PACU Implants: [employer] modular glenoid system baseplate 24 mm with full 10 degree augment oblique [employer] modular glenoid system central post 20 mm [employer] modular glenoid system peripheral locking screws 32 mm inferior, 32 mm superior, 16 mm posterior, none anterior [employer] modular glenoid system glenosphere 39 +4 mm lateralized [employer] humeral stem 135 degrees size 9 [employer] suture cup size 36 neutral offset [employer] spacer size 36 +12mm [employer] humeral insert size 36 +3 mm contrained/ combo 39 Indications: Please see complete medical record for details. Findings: Significant long head biceps tenosynovitis, significant glenohumeral deformity and arthritis including inferior humeral head osteophyte and retroversion. Largely intact subscapularis and superior through posterior superior rotator cuff. Procedure Description: In the operating room, general anesthesia was induced. The patient was positioned beachchair on the operating room table. All bony prominences were well-padded. Preoperative antibiotics were administered. The shoulder was prepped and draped in the usual sterile fashion for shoulder arthroplasty. The correct patient, procedure, and side of the procedure were all verified prior to incision. The deltopectoral approach was preinjected with 0.25% bupivacaine containing epinephrine and taken to the anterior shoulder. Care was taken to bluntly dissect the interval between the deltoid and pectoralis major muscles and to identify the cephalic vein within its fat stripe. The the vein was mobilized laterally. Subdeltoid space and conjoined tendon were freed of adhesions. The long head of the biceps tendon was identified just lateral to the lesser tuberosity. The uppermost margin of the pectoralis major tendon was released from the proximal humerus. The long head of the biceps tendon was tenodesed in situ using SutureTape in a dlmjve-kl-dmogi fashion securing it superior margin the pectoralis major tendon. The biceps tendon was amputated and followed proximally to identify the rotator interval. A subscapularis peel was performed taking care to release the entire tendon in a full-thickness fashion from superior to inferior and lateral to medial while bringing the arm gradually into external rotation. Care was taken to avoid the axillary nerve by only working on the bone inferiorly and medially. The subscapularis was tagged using SutureTape in a Manuelito-Saulo fashion and traction used confirm appropriate mobilization of the subscapularis tendon after gentle blunt dissection was used to free up the space anterior and posterior to it. The supraspinatus and infraspinatus were largely intact with the leading edge of the supraspinatus debrided of minor tearing. Appropriate coagulation was achieved especially interiorly. The anatomic neck was cut using an oscillating saw with the humeral head bone brought back table in case there was a need for future bone grafting. The proximal humerus was delivered from the wound with adduction and external rotation. The proximal humeral protection plate was used to provisionally confirm suture cup and glenosphere size. Reamers were started appropriately posterior to the bicipital groove taking care to maintain in line approach with the humeral canal. Sequential reaming was done from size 5 up to size 8. Next, the broaches were sequentially used to open the proximal humerus starting with a size 5 and going up to size 9 and sunk to the appropriate depth for rotator cuff preservation while maintaining approximately 20 degrees retroversion. There was good metaphyseal fit and rotational control of the proximal humerus with this size. The neutral offset guide was used to ream for the suture cup. Attention was then turned to the glenoid and retractors were placed and a circumferential release performed using the long head of the biceps remnant to remove soft tissue about the glenoid rim. Care was taken inferiorly to work on bone only between 5 and 7:00 o'clock and bluntly elevate tissues inferiorly. The VIP guide was placed on the glenoid and used to confirm placement and trajectory of the central guidepin. The guidepin was inserted and advanced just through the far cortex ensuring adequate central fixation length. The glenoid was prepared according to materials handling coordinator specifications for an augmented baseplate and central post. The baseplate was impacted onto the glenoid surface. The locking guide was then used to drill and place appropriately lengthed inferior, superior, and posterior screws. The anterior screw was omitted given short depth expected. The qafj-qqu-izvprajkc reamer was used to confirm adequate peripheral reaming. The glenosphere was applied with the iron plastic bullet maker and then imp acted to engage the Walters taper. It was then locked with appropriate countersinking of the setscrew. The glenosphere was inspected and found to have good fit, appropriate positioning, and no soft tissue or bony impingement. Attention was then turned back to the proximal humerus. The humeral trial cup was connected. Trialing was commenced with +3 mm liner. The shoulder was reduced and taken through range of motion. Despite the intact rotator cuff, there was significant laxity. No problems with orientation or hardware placement were found. Trial components were built up to +12mm spacer and +3 mm liner to achieve good stability and reasonable tension on the deltoid and conjoined tension. Some increased buildup on the modular components was expected due to the depth of the humeral implant, but in order to avoid instability decision was made to upsize the glenosphere. The glenosphere screw was removed and the extractor used to easily remove the glenosphere. The over the top reamer was used for a size 39 mm glenosphere. The size 39 mm +4 mm lateral glenosphere was then applied, impacted, and set appropriately with screw. Trialing was done again with better stability and tension achieved at a 12?15 millimeter combo 36-39 mm construct. The trial components were removed from the proximal humerus. The wound was copiously irrigated with normal saline. A 2 mm drill was used to drill 2 drill holes in the bicipital groove for later subscapularis repair. The the proximal humeral stem and suture cup were assembled and brought over the proximal humerus. Suture tapes were placed superiorly inferiorly at the medial and lateral aspect of the suture cup. The lateral tapes were brought out the drill holes. A small amount of vancomycin powder was distributed in the proximal humerus. The humeral component and suture cup were impacted into place. The trial spacer and liner were added, built up to +12 mm spacer with 3 mm liner, and the shoulder was reduced and range of motion, stability, and tension were excellent. The final spacer and liner were then connected, and range of motion, stability, and tension confirmed. The shoulder was copiously irrigated with Betadine and normal saline. Vancomycin powder was distributed deeply about the shoulder and through subcutaneous tissues. The arm was placed in about 30 degrees of external rotation. The subscapularis was reduced and repaired using the pairs of SutureTape in a speed bridge type configuration. The arm was taken into more external rotation without any displacement of the subscapularis repair. The d eltopectoral interval was well approximated. Subcutaneous tissue was irrigated then closed using 2-0 Monocryl in a buried interrupted fashion. Skin was closed using 3-0 Monocryl in a buried subcuticular fashion. Skin glue was applied to the incision. A silver impregnated bandage was placed over the incision. The extremity was placed into a shoulder immobilizer. The patient awoke from anesthesia without complication and was taken to the recovery room in stable condition.
[2024-05-31] MEDS: ceFAZolin 2 GM/50 ML BAG IVPB (07:44)
[2024-05-31] MEDS: TRANEXAMIC ACID/SOD. CHL. 1,000 MG/100 ML BAG 600 MG IVPB (07:51)
[2024-05-31] MEDS: Bupivacaine 0.25% Pres-Free W/EPI 30 ML VIAL (08:13)
--- NOTE | 2024-05-31 08:16 | ANES.NERVE_ITS ---
Nerve Block Single Injection Procedure Date and Time Date Performed: 05/31/24 Procedure Start: 07:07 Location Where Procedure Performed Procedure Location: Day Surgery Unit Reason Performed: Postoperative Analgesia Requesting Provider: Ashok Fuentes Timeout Performed Timeout Performed: Yes Monitoring Used ECG, Blood Pressure and SpO2 Sterility Sterility: Hand Hygiene, Surgical Cap, Surgical Mask, Sterile Gloves and Chlorhexidine Sedation Given During Procedure Sedation Given (Indicate Dose Given): Versed IV Dose:: 2mg Patient Mental Status Patient Mental Status: Awake Nerve Block 1st Nerve Block: Laterality: Right Block Type: Interscalene Ultrasound Image Saved?: Yes Needle / Catheter Used: 80mm SonoPlex II Local Anesthetic Bolus (Indicate Dose Given): Lidocaine used for local i nfiltration of skin, Injected in 3-5ml increments after negative blood aspiration, Bupivacaine 0.5% Dose:: 10ml and Exparel Dose:: 10ml Additives (Indicate Dose Given): None Ultrasound: Sterile probe cover and gel used Nerve Stimulator: Supplement to Ultrasound use Paresthesia: None Procedure Tolerated: No Complications Procedure Outcome: Successful Performed By: Dustin Godinez Supervised By: Cathi Romero
--- NOTE | 2024-05-31 11:30 | DI.RAD_ITS ---
Exam(s) XR SHOULDER RT COMPLETE 2+V EXAM: XR SHOULDER RT COMPLETE 2+V CLINICAL HISTORY: shoulder arthritis. TECHNIQUE: 2D digital imaging was performed. COMPARISON: CR XR SHOULDER RT COMPLETE 2+V from 10/21/2022 FINDINGS: 3 postop views There is satisfactory position and alignment of the components of the newly placed reverse prosthesis . No fracture or loosening evident. IMPRESSION: Satisfactory postop appearance DATA REPOSITORY: RADIATION DOSE DELIVERED:
[2024-05-31] MEDS: ceFAZolin 1 GM/50 ML BAG IVPB (12:00)
--- NOTE | 2024-05-31 12:17 | W.ANESPOSTOP ---
Postoperative Evaluation Date, Time and Location Date Performed: 05/31/24 Time Performed: 12:17 Patient Location: PACU Vital Signs Most Recent Imported Vital Signs: Most Recent Vital Signs Temp Pulse Resp BP Pulse Ox 36.5 C 51 L 12 138/56 L 95 05/31/24 12:12 05/31/24 12:11 05/31/24 12:15 05/31/24 12:11 05/31/24 12:15 Pain Score Most Recent Pain Score: Most Recent Pain Score Pain Level 0 05/31/24 12:12 Assessment Mental Status: Awake (Alert & Oriented to Patient Baseline) Airway and Respiratory Function: Patent airway with normal (patient baseline) respiratory exam Cardiovascular Function: Hemodynamically Stable Hydration Status: Adequately Hydrated Nausea & Vomiting: No Nausea or Vomiting Pain: Pt. Denies Any Pain Peripheral Nerve Block: Regional nerve block not resolved at time of post operative discharge Teaching Patient Teaching: Discussed Safe Use of Pain Medication Given Recent Anesthesia
[2024-05-31] MEDS: Lactobacillus Acidophilus CAP 1 CAP PO (12:43)
== END 2024-05-31 14:14 | disposition home or self-care (01) ==
PROVIDERS: PCP Nurse Practitioner Family; Visit Provider Student in an Organized Health Care Education/Training Program
PROC: (CPT 23472; principal; 2024-05-31 07:30)
DX: M19.011 Primary osteoarthritis, right shoulder (principal); M75.21 Bicipital tendinitis, right shoulder
CPT/HCPCS: 23472; 23430; C1713; 76942; 73030; C9290; J0665; J0690; J1100; J2001; J2250; J2371; J2405; J2704; J3370

== ENCOUNTER 2024-06-11 10:22 | Outpatient (CLI) | payer MEDICARE, BC, SELFPAY ==
--- NOTE | 2024-06-11 08:45 | DI.RAD_ITS ---
Exam(s) XR SHOULDER RT COMPLETE 2+V EXAM: XR SHOULDER RT COMPLETE 2+V CLINICAL HISTORY: F/U RIGHT RTSA. TECHNIQUE: 2D digital imaging was performed. COMPARISON: CR XR SHOULDER RT COMPLETE 2+V from 05/31/2024 FINDINGS: Two views There is stable position alignment of the components of the recently placed reverse prosthesis. No f racture or loosening evident. IMPRESSION: Stable satisfactory appearance of the recently placed reverse prosthesis. DATA REPOSITORY: RADIATION DOSE DELIVERED:
== END 2024-06-11 10:23 | disposition home or self-care (01) ==
LOC: DIORS 10:22
PROVIDERS: PCP Nurse Practitioner Family; Visit Provider Student in an Organized Health Care Education/Training Program
DX: Z47.1 Aftercare following joint replacement surgery; Z96.611 Presence of right artificial shoulder joint
CPT/HCPCS: 73030

== ENCOUNTER → 2024-06-17 08:01 | Outpatient (BNVA) | payer MEDICARE, BC, SELFPAY | PROVIDERS: PCP Nurse Practitioner Family; Referring Provider Nurse Practitioner Family | DX: Z47.1 Aftercare following joint replacement surgery (principal); M70.51 Other bursitis of knee, right knee; R60.0 Localized edema; Z96.651 Presence of right artificial knee joint | CPT/HCPCS: 99213 ==

== ENCOUNTER 2024-06-17 09:52 | Outpatient (CLI) | payer MEDICARE, BC, SELFPAY ==
--- NOTE | 2024-06-17 | DI.RAD_ITS ---
Exam(s) XR SHOULDER LT COMPLETE 2+V EXAM: XR SHOULDER LT COMPLETE 2+V CLINICAL HISTORY: LT SHOULDER OA, ROTATOR CUFF TENDINOSIS. TECHNIQUE: 2D digital imaging was performed. COMPARISON: CR XR SHOULDER RT COMPLETE 2+V from 05/31/2024 CR XR SHOULDER RT COMPLETE 2+V from 06/11/2024 FINDINGS: Five views. No evidence of fracture nor dislocation or abnormal soft tissue calcifications. Subacromial space is not diminished. There are moderate degenerative changes in the glenohumeral joint. There are also mild degenerative changes in the AC joint. IMPRESSION: Degenerative changes in the glenohumeral and AC joints. DATA REPOSITORY: RADIATION DOSE DELIVERED:
== END 2024-06-17 10:12 ==
PROVIDERS: PCP Nurse Practitioner Family; Visit Provider Neuromusculoskeletal Medicine & OMM
DX: M19.012 Primary osteoarthritis, left shoulder (principal)
CPT/HCPCS: 99213; 73030

== ENCOUNTER → 2024-07-30 08:58 | Outpatient (BNVA) | payer MEDICARE, BC, SELFPAY | PROVIDERS: PCP Nurse Practitioner Family; Referring Provider Nurse Practitioner Family; Visit Provider Student in an Organized Health Care Education/Training Program | DX: Z47.1 Aftercare following joint replacement surgery (principal); Z96.611 Presence of right artificial shoulder joint | CPT/HCPCS: 99024 ==

== ENCOUNTER → 2024-08-12 08:13 | Outpatient (BNVA) | payer MEDICARE, BC, SELFPAY | PROVIDERS: PCP Nurse Practitioner Family; Referring Provider Nurse Practitioner Family; Visit Provider Student in an Organized Health Care Education/Training Program | DX: Z47.1 Aftercare following joint replacement surgery (principal); Z96.651 Presence of right artificial knee joint; M70.51 Other bursitis of knee, right knee | CPT/HCPCS: 99213 ==

== ENCOUNTER 2024-10-08 15:53 | Outpatient (CLI) | payer MEDICARE, BC, SELFPAY ==
--- NOTE | 2024-10-08 09:45 | DI.RAD_ITS ---
Exam(s) XR SHOULDER RT COMPLETE 2+V EXAM: XR SHOULDER RT COMPLETE 2+V CLINICAL HISTORY: F/U RIGHT RTSA. TECHNIQUE: 2D digital imaging was performed. Two images were obtained. Y and Grashey views were obt ained. COMPARISON: CR XR SHOULDER RT COMPLETE 2+V from 06/11/2024 FINDINGS: BONES: There are stable post operative changes of a right reverse total shoulder arthroplasty present . No fracture or dislocation. JOINTS: The orthopedic hardware is in good position. No evidence of hardware loosening. SOFT TISSUE: Normal. IMPRESSION: Stable right reverse total shoulder arthroplasty. DATA REPOSITORY: RADIATION DOSE DELIVERED:
== END 2024-10-08 15:54 | disposition home or self-care (01) ==
LOC: DIORS 15:53
PROVIDERS: PCP Nurse Practitioner Family; Referring Provider Nurse Practitioner Family; Visit Provider Student in an Organized Health Care Education/Training Program
DX: Z47.1 Aftercare following joint replacement surgery (principal); Z96.611 Presence of right artificial shoulder joint
CPT/HCPCS: 99213; 73030

== ENCOUNTER 2024-10-14 15:41 | Outpatient (CLI) | payer MEDICARE, BC, SELFPAY ==
--- NOTE | 2024-10-14 10:34 | DI.RAD_ITS ---
Exam(s) XR KNEE RT 3V AP,LAT,PEEWEE EXAM: XR KNEE RT 3V AP,LAT,PEEWEE CLINICAL HISTORY: ANNUAL F/U R TKA. TECHNIQUE: 2D digital imaging was performed. Three views. COMPARISON: CR XR KNEE RT 1V from 11/02/2023 CR XR STANDING ALIGNMENT from 11/02/2023 FINDINGS: BONES: No acute fracture is present. No bony destructive lesion is seen. JOINTS: Stable alignment of the femoral and tibial components of the total knee prosthesis. Question of thinning of the polyethylene liner of the patellar component compared with the previous exam vers us differences in projection. The knee is normally aligned. No joint effusion is seen. SOFT TISSUE: Normal. IMPRESSION: Question of thinning of the polyethylene liner of the patellar component of the knee prosthesis versu s differences in projection. DATA REPOSITORY: RADIATION DOSE DELIVERED:
== END 2024-10-14 15:42 | disposition home or self-care (01) ==
LOC: DIORS 15:41
PROVIDERS: PCP Nurse Practitioner Family; Visit Provider Student in an Organized Health Care Education/Training Program
DX: Z47.1 Aftercare following joint replacement surgery (principal); Z96.651 Presence of right artificial knee joint
CPT/HCPCS: 73562; 99213

== ENCOUNTER → 2025-01-15 09:23 | Outpatient (BNVA) | payer MEDICARE, BC, SELFPAY | PROVIDERS: PCP Nurse Practitioner Family; Referring Provider Nurse Practitioner Family; Visit Provider Physician Assistant | DX: M17.12 Unilateral primary osteoarthritis, left knee (principal) | CPT/HCPCS: 20610; J1010 ==

== ENCOUNTER 2025-01-27 00:45 | Outpatient (CLI) | payer MEDICARE, BC, SELFPAY ==
--- NOTE | 2025-01-27 08:45 | DI.CT_ITS ---
Exam(s) CT CHEST WO EXAM: CT CHEST WO CLINICAL HISTORY: fam hx of lung cancer Z80.1 FAM HX NEOPLASM TRACHEA BRONCHUS AND LUNG. TECHNIQUE: Imaging protocol: Axial computed tomography images were obtained and coronal and sagittal reformatted images were created and reviewed. Computer aided detection (CAD) was utilized. CONTRAST MATERIAL: Noncontrast COMPARISON: No exams were available for comparison FINDINGS: Pulmonary parenchyma: No consolidation. No suspicious nodules. Interstitial changes: None. Emphysema: None. Tracheobronchial tree: No mucous plugging. No bronchiectasis. No evidence of mass. Pleura: No effusion or pneumothorax. Heart: The heart is not dilated. The coronary arteries show no visible calcifications. Aorta: Thoracic aorta non-dilated. Minimal atherosclerotic changes. Lymph nodes: No enlarged lymph nodes. Bones: Shoulder prosthesis. Degenerative changes are seen. No evidence of compression fracture. Upper abdomen: Unremarkable. Soft tissues: Unremarkable. IMPRESSION: No acute abnormality in the chest. RADIATION DOSE DELIVERED: Total DLP Total DLP DATA REPOSITORY: All CT scans at this facility are submitted to the National Radiology Data Registry (NRDR) Dose Index Registry (DIR) with the [employer] (ACR). RADIATION OPTIMIZATION: All CT scans at this facility use at least one of these dose optimization te chniques: automated exposure control; mA and/or kV adjustment per patient size (includes targeted exa ms where dose is matched to clinical indication); or iterative reconstruction.
== END 2025-01-27 01:05 ==
LOC: DI 00:45
PROVIDERS: PCP Nurse Practitioner Family; Visit Provider Nurse Practitioner Family
DX: Z80.1 Family history of malignant neoplasm of trachea, bronchus and lung (principal); Z12.2 Encounter for screening for malignant neoplasm of respiratory organs
CPT/HCPCS: 71250

== ENCOUNTER → 2025-02-10 10:48 | Outpatient (BNVA) | payer MEDICARE, BC, SELFPAY | PROVIDERS: PCP Nurse Practitioner Family; Referring Provider Nurse Practitioner Family; Visit Provider Student in an Organized Health Care Education/Training Program | DX: S83.242A Other tear of medial meniscus, current injury, left knee, initial encounter (principal); M17.12 Unilateral primary osteoarthritis, left knee; M25.661 Stiffness of right knee, not elsewhere classified; Z96.651 Presence of right artificial knee joint; X58.XXXA Exposure to other specified factors, initial encounter | CPT/HCPCS: 99214 ==

== ENCOUNTER 2025-02-25 01:05 | Outpatient (CLI) | payer MEDICARE, BC, SELFPAY ==
--- NOTE | 2025-02-25 07:30 | DI.MRI_ITS ---
Exam(s) MR LOWER JOINT LT WO EXAM: MR LOWER JOINT LT WO CLINICAL HISTORY: PAIN,tear meniscus lt knee,oa lt knee,m17.12,s83.207a TECHNIQUE: Multiplanar multisequence MRI of the knee was performed. COMPARISON: MR MR LOWER JOINT RT WO from 07/12/2023 DX KNEE 4V LEFT from 12/24/2024 FINDINGS: EFFUSION: There is a prominent joint effusion. There is a thin Valero's cyst in the medial popliteal fossa with measures 2.5 cm length. MARROW:There is bone contusion signal in the medial tibial plateau and extending into the metaphysis. There is also a focal sub chondral signal abnormality in the medial tibial plateau. PATELLOFEMORAL COMPARTMENT: The quadriceps tendon is intact. The patellar ligament is intact. There is full-thickness thinning of the retropatellar cartilage over the medial facet and moderate ca rtilage thinning over the lateral facet. There is a focus of subarticular edema in the posterior pat syd over the lateral facet. There are no osteochondral defects at this level.No intraosseous signal to suggest recent patellar dislocation. There is no significant patellar displacement. CRUCIATE LIGAMENTS: The anterior cruciate ligament is intact.The posterior cruciate ligament is intac t. MEDIAL COMPARTMENT/MEDIAL MENISCUS: There is a significant tearing of the posterior horn of the media l meniscus at the level the root. There is no obvious meniscal fragment in the intercondylar notch. There is also foot signal abnormality in the outer 3rd of the posterior horn and there is mild outwa rd extrusion of the posterior horn but no gutter descent. The anterior horn of the medial meniscus a ppears intact. There is advanced articular cartilage loss over the entire weight-bearing surface of the medial femor al condyle with some mild subarticular edema signal in the medial femoral condyle and more significan t articular cartilage loss and more prominent signal abnormality over the medial tibial plateau. MEDIAL COLLATERAL LIGAMENT: There is significant signal abnormality lateral and medial to the main co mponent of the medial collateral ligament. However, there is no high-grade tear of the main componen t of the MCL. LATERAL COMPARTMENT/LATERAL MENISCUS: There is no evidence of obvious lateral meniscal tear.There is relative preservation of articular cartilage in the medial compartment. No osteochondral defects. N o subarticular edema. ILIOTIBIAL BAND: Intact LATERAL COLLATERAL LIGAMENT COMPLEX: The fibular collateral ligament is intact. The biceps femoris t endon is intact.Popliteus muscle and tendon are intact. OTHER: There is edema posteriorly between the medial lateral gastrocnemius muscles. IMPRESSION: 1. There is complex tear of the posterior horn of the medial meniscus which is predominately at the l evel the root. There also appears to be a milder oblique component in the lateral 3rd of the posteri or horn. There is mild outward extrusion of the posterior horn. There is no tear of the anterior ho rn of the medial meniscus. Advanced articular thickness cartilage loss in the medial compartment. Some subarticular bone edema is seen in both the medial condyle and medial tibial plateau, more prominent in the medial tibial [place]. 2. Sprain signal in the medial collateral ligament but without full-thickness tear of this structure. 3. There are no obvious tears of the lateral meniscus and only minimal degenerative changes in the la teral compartment. 4. There is advanced chondromalacia patella within the patellofemoral compartment. There is full-thi ckness cartilage loss over the medial facet of the patella and moderate-advanced cartilage loss over the lateral facet. No cruciate ligament tears. Lateral collateral ligament complex components appear intact. Other findings as above. DATA REPOSITORY:
== END 2025-02-25 01:25 ==
LOC: DI 01:05
PROVIDERS: PCP Nurse Practitioner Family; Visit Provider Student in an Organized Health Care Education/Training Program
DX: M17.12 Unilateral primary osteoarthritis, left knee (principal)
CPT/HCPCS: 36415; 73721; 80053

== ENCOUNTER 2025-02-25 12:51 | Outpatient (CLI) | payer MEDICARE, BC, SELFPAY ==
[2025-02-25 14:31] LABS: ALT 25 U/L (14-59); AST 33 U/L (15-37); Alkaline Phosphatase 57 U/L (46-116); Anion Gap 6.2 mmol/L (3-11); BUN 17 mg/dL (7-18); Bilirubin, Total 0.6 mg/dL (0.2-1.0); CO2 29.8 mmol/L (21.0-32.0); CREATININE 0.8 mg/dL (0.55-1.02); Calcium 9.3 mg/dL (8.5-10.1); Chloride 103 mmol/L (98-107); Estimated GFR 77.27 (mL/min/1.73m2); Glucose 103 mg/dL (74-106); Potassium 3.4 mmol/L (3.5-5.1); Sodium 139 mmol/L (136-145); Total Protein 7.3 g/dL (6.4-8.2)
== END 2025-02-25 12:52 | disposition home or self-care (01) ==
LOC: LBO 12:52
PROVIDERS: PCP Nurse Practitioner Family; Visit Provider Internal Medicine
DX: M81.0 Age-related osteoporosis without current pathological fracture (principal)
CPT/HCPCS: 36415; 80053

== ENCOUNTER 2025-03-04 09:45 | Day surgery (SDC) | payer MEDICARE, BC, SELFPAY ==
[2025-03-04] VITALS (13 sets, daily range): BP systolic 105–123; BP diastolic 46–70; PULSE 42–65; RESP 8–18; TEMP 35.7–36.5; O2SAT 95–100; BMI 22.5
--- NOTE | 2025-03-04 07:43 | W.PM.DSUDISC ---
Date of service: 03/04/25 Discharge Plan Disposition Patient Disposition: Home Condition: Good Discharge Details Reason For Visit: Painful right TKA Attending Provider: Alejandro Mendoza Primary Care Provider: Anita Arriola Mentor Meds and New Rx's Prescriptions: New hydrocodone-acetaminophen 5-325 mg tablet 1 tab PO Q6H PRN (Reason: severe pain) Qty: 6 0RF Rx Instructions: Take one tablet up to every 6 hours as needed for severe postoperative pain acetaminophen 500 mg tablet 500 mg PO Q6H PRN (Reason: pain) Qty: 60 2RF ibuprofen 600 mg tablet 600 mg PO TID PRN (Reason: pain) Qty: 60 0RF Continued hydroxyzine HCl 25 mg tablet 25 - 50 mg PO TID PRN (Reason: anxiety) Qty: 60 0RF zoledronic cbyy-[id number]-nsyfd [Reclast] 5 mg/100 mL piggyback 1 device IV .Annually VITAMIN B COMPLEX 1 EACH tablet 1 tab-cap PO DAILY levothyroxine 100 mcg tablet 100 mcg PO DAILY Qty: 90 3RF esomeprazole magnesium [Acid Surgery Tech (esomeprazole)] 20 mg capsule,delayed release(DR/EC) 20 mg PO DAILY cholecalciferol (vitamin D3) [Vitamin D3] 1,000 UNIT capsule 1,000 unit PO DAILY Discharge Instructions Stand Alone Forms: [facility]throsc[facility] Referrals: Alejandro Mendoza MD [ [facility] STAFF PHYSICIAN] - Equipment/Supplies: Partial Weight Bearing Crutches Activity:: Elevate Remove Dressings/Wound Care:: 48 hours Shower/Bathe:: 48 hours Diet:: As Tolerated Discharge Orders Discharge Orders: Discharge Order (Routine); Ordered 03/04/25 Ordered By: Katharina Jimenez
--- NOTE | 2025-03-04 10:06 | ANES.PREOP_ITS ---
General Info Date of Service Date Performed: 03/04/25 Height: 5 ft 7.25 in Weight: 65.8 kg Body Mass Index (BMI): 22.5 Surgical Procedure: Operation Date: 03/04/25 13:25 Proposed Procedure Side Surgeon p Knee Arthroscopy Synovectomy Right Alejandro Mendoza MD Meds Allergies and Home Medications Allergies Allergy/AdvReac Type Severity Reaction Status Date / Time ciprofloxacin HCl (From AdvReac dizzy, Verified 03/04/25 10:06 Cipro) confusion citalopram AdvReac Dizziness Verified 03/04/25 10:06 metronidazole (From Flagyl) AdvReac dizzy, Verified 03/04/25 10:06 confusion Home Medication ?Medication ?Instructions ?Recorded Vitamin B Complex 1 tab-cap PO DAILY 09/26/13 cholecalciferol (vitamin D3) 25 1,000 unit PO DAILY 11/06/17 mcg (1,000 unit) capsule (Vitamin D3) hydroxyzine HCl 25 mg tablet 25 - 50 mg (1 - 2 x 25 mg) PO TID 04/12/24 PRN anxiety #60 tabs zoledronic acid 5 mg/100 mL in 1 device IV .Annually 04/12/24 mannitol 5 %-water intravenous piggybck (Reclast) esomeprazole magnesium 20 mg 20 mg PO DAILY Acid refux 05/29/24 capsule,delayed release (Acid Development Executive (esomeprazole)) levothyroxine 100 mcg tablet 100 mcg PO DAILY #90 tabs 10/29/24 acetaminophen 500 mg tablet 500 mg PO Q6H PRN pain #60 tabs 03/04/25 hydrocodone 5 mg-acetaminophen 325 1 tab PO Q6H PRN severe pain #6 03/04/25 mg tablet tabs ibuprofen 600 mg tablet 600 mg PO TID PRN pain #60 tabs 03/04/25 Current Visit Medications: Current Medications Generic Name Dose Route Start Last Admin Trade Name Freq PRN Reason Stop Dose Admin Acetaminophen 1,000 mg 03/04/25 06:00 Acetaminophen 500 Mg Tab PO 03/04/25 23:59 PREOP DESHAUN Hydrocodone Bitart/Acetaminophen 0 tab 03/04/25 07:30 Hydrocodone 5/Acetaminophen 325 Tab PO 04/03/25 07:29 Q3H PRN PRN Pain Celecoxib 400 mg 03/04/25 06:00 Celecoxib 200 Mg Cap PO 03/04/25 23:59 PREOP DESHAUN Ringer's Solution 1,000 mls @ 80 mls/hr 03/04/25 06:00 IV 03/04/25 23:59 INFUSION DESHAUN Cefazolin Sodium/Dextrose 2 gm in 50 mls @ 100 mls/hr 03/04/25 06:00 Ancef Duplex IVPB 03/04/25 23:59 PREOP DESHAUN Tranexamic Acid/Sodium Chloride 1,000 mg in 100 mls @ 600 mls/hr 03/04/25 06:00 IVPB 03/04/25 23:59 PREOP DESHAUN IV Miscellaneous Supplies 1 each 03/04/25 06:00 Iv Access IV 03/04/25 23:59 DIRECTED DESHAUN Sodium Chloride 0 ml 03/04/25 06:00 Normal Saline Flush 10 Ml Syr IV 03/04/25 23:59 PRN PRN Sodium Chloride 0 ml 03/04/25 06:00 Normal Saline 10 Ml Vial IJ 03/04/25 23:59 DIRECTED PRN Sterile Water 0 ml 03/04/25 06:00 Water,Injection,Sterile 10 Ml Vial IJ 03/04/25 23:59 DIRECTED PRN PFSH Active Problems Active Problems: Problem Status Onset Code Tear of medial meniscus of left knee Acute S83.242A Osteoarthritis of left knee Acute M17.12 Painful total knee replacement, right Acute T84.84XA, Z96.651 Arthritis of left shoulder region Acute M19.012 Tendonitis of long head of biceps brachii of right shoulder Acute M75.21 Insomnia Chronic G47.00 Arthritis of hand, left Chronic M19.042 Pes anserinus bursitis of right knee Chronic M70.51 Macular hole of left eye Chronic H35.342 Carpal tunnel syndrome of left wrist Chronic G56.02 Arthritis of carpometacarpal (CMC) joint of left thumb Chronic M18.12 Generalized anxiety disorder Chronic F41.1 CKD (chronic kidney disease) stage 3, GFR 30-59 ml/min Chronic N18.30 Osteoporosis Chronic M81.0 Hypothyroidism Chronic E03.9 Medical History Medical History Infectious colitis Closed fracture of left distal radius (08/29/22) Prediabetes Surgical History Surgical History History of right shoulder replacement Arthritis of right glenohumeral joint s/p Right reverse total shoulder arthroplasty (rotator cuff preserved and subscapularis repair) with biceps tenodesis 05/31/24 History of total right knee replacement (10/18/23) S/P partial thyroidectomy For benign thyroid tumor S/P lumpectomy, right breast Noncancerous S/P nasal septoplasty S/P right knee arthroscopy History of bilateral ligation of fallopian tubes Status post tonsillectomy and adenoidectomy Tobacco Smoking/Tobacco Use Status: Never Passive smoking exposure: Yes Second hand exposure: No Alcohol Alcohol Intake: current Alcohol intake frequency: a few times a week Alcohol type: hard liquor Substance Use Substance use: Never Substance use type: does not use Vital Signs and Lab Results Vital Signs Most Recent Vital Signs in EMR: Most Recent Vital Signs Temp Pulse Resp BP Pulse Ox 36.4 C L 65 16 105/63 98 03/04/25 09:54 03/04/25 09:54 03/04/25 09:54 03/04/25 09:54 03/04/25 09:54 Lab Results Blood Type / Crossmatch: No Data to Display Complete Blood Count: No Data to Display Complete Metabolic Panel: Sodium 139 mmol/L (136-145) 02/25/25 13:50 Potassium 3.4 mmol/L (3.5-5.1) L 02/25/25 13:50 Chloride 103 mmol/L (98-107) 02/25/25 13:50 Carbon Dioxide 29.8 mmol/L (21.0-32.0) 02/25/25 13:50 BUN 17 mg/dL (7-18) 02/25/25 13:50 Creatinine 0.8 mg/dL (0.55-1.02) 02/25/25 13:50 Est GFR (CKD-EPI 2020) 77.27 (mL/min/1.73m2) 02/25/25 13:50 Calcium 9.3 mg/dL (8.5-10.1) 02/25/25 13:50 Albumin 4.0 g/dL (3.4-5.0) 02/25/25 13:50 Glucose 103 mg/dL (74-106) 02/25/25 13:50 Liver Function Panel: Alanine Aminotransferase (ALT/SGPT) 25 U/L (14-59) 02/25/25 13: 50 Aspartate Amino Transf (AST/SGOT) 33 U/L (15-37) 02/25/25 13:50 Coagulation Panel: No Data to Display Cardiac Panel: No Data to Display Arterial Blood Gas: No Data to Display Venous Blood Gas: No Data to Display Pancreas Panel: No Data to Display Thyroid Panel: No Data to Display Infectious Disease: No Data to Display Blood Cultures: No Data to Display Toxicology Panel: No Data to Display Imaging and Studies Imaging and Studies Study information below may be from another EMR and interpreted by another provider. Please see original notes in EMR for more complete details. Carotid Artery Summary:: 02/13/19 Minimal plaque. No significant internal carotid artery stenosis. Anesthesia Assessment and Plan Anesthesia History Personal History: No History of Anesthesia Complications Family History: No Family History of Anesthesia Complications Exercise Tolerance Exercise Tolerance: Metabolic Equivalents>4 Cardiac & Pulmonary Exam Cardiac Exam: Normal S1/S2 Heart Sounds Pulmonary Exam: Clear Bilateral Breath Sounds Implantable Cardiac Device Does patient have a Pacemaker or an ICD?: No Airway Exam Known Difficult Airway: No Mallampati Class: 2 Mouth Opening: Normal (> 3cm) Thyromental Distance: Greater than 3 cm Neck Range of Motion: Full ROM Neck Circumference: Normal Teeth Condition: Normal Dentition ASA Classification ASA Score: ASA 2 Emergency Case?: No NPO Status NPO Status: NPO Clears >2 hours, Solids >8 hours Anesthesia Plan Resuscitation Status: Full Code Anesthesia Technique: General Anesthesia Airway Planned: LMA Monitors Used: Standard Monitors Preoperative Comments:: 74 yo female for knee scope. Sig PMHx: GERD (Esomeprazole. Takes 20 mg daily, took today. Well controlled), CKDIII, hypothyroid (on replacement), preDM, anxiety, never smoker, occ EtOH. Previous Anes: - Reverse total, prop, phenyl gtt, mac 3 grade 1. - TKA, spinal, prop sedation, natural airway, no issues.
[2025-03-04] MEDS: Lactated Ringers 1,000 ML 80 ML IV (10:17)
[2025-03-04] MEDS: Celecoxib 200 MG CAP 400 MG PO (10:20)
[2025-03-04] MEDS: Acetaminophen 500 MG TAB 1000 MG PO (10:20)
[2025-03-04] MEDS: ceFAZolin 2 GM/50 ML BAG IVPB (11:32)
[2025-03-04] MEDS: TRANEXAMIC ACID/SOD. CHL. 1,000 MG/100 ML BAG 600 MG IVPB (11:38)
[2025-03-04] MEDS: Bupivacaine 0.25% Pres-Free 30 ML VIAL (12:05)
[2025-03-04] MEDS: EPINEPHrine 10 MG/10 ML ML (12:05)
[2025-03-04] MEDS: Normal Saline 10 ML VIAL IJ (13:00)
[2025-03-04] MEDS: HYDROmorphone 2 MG/ML SYR IVP (13:00)
--- NOTE | 2025-03-04 13:13 | W.ANESPOSTOP ---
Postoperative Evaluation Date, Time and Location Date Performed: 03/04/25 Time Performed: 13:13 Patient Location: PACU Vital Signs Most Recent Imported Vital Signs: Most Recent Vital Signs Temp Pulse Resp BP Pulse Ox 36.4 C L 65 16 105/63 98 03/04/25 12:56 03/04/25 09:54 03/04/25 09:54 03/04/25 09:54 03/04/25 09:54 Pain Score Most Recent Pain Score: Most Recent Pain Score Pain Level 8 03/04/25 13:10 Assessment Mental Status: Awake (Alert & Oriented to Patient Baseline) Airway and Respiratory Function: Patent airway with normal (patient baseline) respiratory exam Cardiovascular Function: Hemodynamically Stable Hydration Status: Adequately Hydrated Nausea & Vomiting: No Nausea or Vomiting Pain: Pain is tolerable per patient (Was treated, now tolerable per patient) Peripheral Nerve Block: Patient did not receive a nerve block
--- NOTE | 2025-03-04 15:30 | W.PM.OP ---
Operative Note Operative Note PRE-OP DIAGNOSIS: Arthrofibrosis and Crepitus of Knee Replacement - RIGHT POST-OP DIAGNOSIS: same PROCEDURE: Arthroscopic Synovectomy of 3 Compartments - RIGHT Knee SURGEON: Alejandro Mendoza ANESTHESIA TYPE: General LMA/ETT Refer to Anesthesia Record ESTIMATED BLOOD LOSS: 0 PATHOLOGY: none sent COMPLICATIONS: None Patient was transported to: PACU Patient's condition: stable Indications: I have seen PATTI in clinic for symptoms of arthrofibrosis characterized by subjective tightness and crepitus of the knee following knee replacement surgery. Nonoperative measures were exhausted but disability persisted. I discussed knee arthroscopy with synovectomy with the patient. I reviewed the risks of the procedure to include, but not limited to, bleeding, infection, pain, continued stiffness, recurrence, blood clot. Despite these risks, the patient elected to proceed. Findings: There was some thickened synovitis seen in the lateral aspect of the knee and just to the lateral side of the patella. No other abnormal findings. Procedure Description: PATTI was greeted in the preoperative holding area where the correct side was identified and marked. The consent was reviewed with the patient and signed. The history and physical was updated. All questions were answered. She was taken back to the operating room. The patient was placed into the supine position on the operating room table. All bony prominences were well padded. Prophylactic antibiotics in the form of Cefazolin were administered. The right leg was then prepped with Chloraprep and draped in a standard fashion with stockinette and extremity drape. A timeout to confirm correct identity, side and site, procedure, allergies, anesthesia, and medical concerns was performed. A standard lateral portal was made at the lateral border of the patella tendon in line with the inferior pole of the patella, soft spot. The skin and deep tissue was incised sharply and the blunt trochar was inserted atraumatically. At this point had visualization of the femoral component. A superolateral portal was then established with spinal needle localization just superior and lateral to the patella. A knife was taken down through the skin and soft tissue to enter the knee joint. Starting in the superior compartment above the femoral component and anterior to the femur I released all scarring between the anterior femoral synovium and the overlying extensor mechanism. This was taken through all of any noticeable scar tissue until the superior patellar pouch was fully released and mobile. This resection was carried out mostly with electrocautery as well as shaver. This scarring was quite minimal compared to other cases. However, there was notable thickness of the scar tissue, capsular layer and synovium lateral. Once this was released fully from lateral to medial superiorly I then continue working down the lateral gutter. All scar tissue in the lateral gutter was released so there is normal space and movement between the capsular tissues and the edge of the femoral component and femur. I also used a shaver to debride the thickness of this tissue and remove some the scar tissue in this region. This was taken down through the lateral gutter such that I was able to identify the polyethylene to its posterior corner. Once again, all scar tissue in this area was resected so the polyethylene was easily visible and there is no interposed tissue in the back or the polyethylene was identified. I then continue to work anteriorly. To continue the synovectomy from the lateral compartment to the anterior compartment into the medial compartment, I placed a medial portal under spinal needle localization. Once this was in place it became another working portal and I continued the synovectomy through the anterior compartment to the medial compartment. There was a large pedunculated piece of synovium from the posterior capsule to the anterior knee which was transected and removed. There is no interposed tissue after full synovectomy was performed. Adhesions between the capsule and the femur were released, focusing once again on the lateral compartment of the knee and the lateral aspect of the patella. Any remnant scar tissue from around the patella was then removed with a shaver and electrocautery. The arthroscope was brought back into the suprapatellar pouch and the leg was in full extension. The knee was thoroughly irrigated with the arthroscopic fluid on high flow and pressure. Inflow was stopped and excess fluid was removed. The wounds were closed with 4-0 Nylon. 0.25% ropivacaine was injected around the portal sites and into the knee. The wounds were dressed with Xeroform, 4x4 gauze, ABD pad, Kerlix and an DG wrap. A cryo-cuff was applied. The patient tolerated the procedure well and was returned to the PACU area in a stable condition suffering no known complication.. Date of Procedure: 03/04/25
== END 2025-03-04 14:36 | disposition home or self-care (01) ==
LOC: SUR 09:45
PROVIDERS: PCP Nurse Practitioner Family; Visit Provider Student in an Organized Health Care Education/Training Program
PROC: (CPT 29870; principal; 2025-03-04 13:15)
DX: T84.84XA Pain due to internal orthopedic prosthetic devices, implants and grafts, initial encounter (principal); M24.661 Ankylosis, right knee; N18.30 Chronic kidney disease, stage 3 unspecified; E03.9 Hypothyroidism, unspecified; R73.03 Prediabetes; M81.0 Age-related osteoporosis without current pathological fracture; F41.1 Generalized anxiety disorder
CPT/HCPCS: 29876; J0665; J0690; J1100; J1171; J1885; J2003; J2405; J2704; J3010

== ENCOUNTER → 2025-03-17 10:41 | Outpatient (BNVA) | payer MEDICARE, BC, SELFPAY | PROVIDERS: PCP Nurse Practitioner Family; Referring Provider Nurse Practitioner Family; Visit Provider Physician Assistant | DX: T84.84XD Pain due to internal orthopedic prosthetic devices, implants and grafts, subsequent encounter (principal); X58.XXXD Exposure to other specified factors, subsequent encounter; S83.242A Other tear of medial meniscus, current injury, left knee, initial encounter; M17.12 Unilateral primary osteoarthritis, left knee; M70.52 Other bursitis of knee, left knee | CPT/HCPCS: 99213 ==

== ENCOUNTER 2025-04-04 00:51 | Outpatient (RCR) | payer MEDICARE, BC, SELFPAY ==
[2025-04-04] MEDS: Acetaminophen 325 MG TAB (08:02)
[2025-04-04] MEDS: Normal Saline Flush 10 ML SYR IVP (08:26)
== END 2025-04-24 23:59 | disposition home or self-care (01) ==
LOC: INF 00:51
PROVIDERS: PCP Nurse Practitioner Family; Visit Provider Family Medicine
DX: M81.0 Age-related osteoporosis without current pathological fracture (principal)
CPT/HCPCS: 96365; J3489

== ENCOUNTER → 2025-04-14 09:26 | Outpatient (BNVA) | payer MEDICARE, BC, SELFPAY | PROVIDERS: PCP Nurse Practitioner Family; Referring Provider Nurse Practitioner Family; Visit Provider Physician Assistant | DX: Z47.89 Encounter for other orthopedic aftercare (principal); Z96.651 Presence of right artificial knee joint; T84.84XA Pain due to internal orthopedic prosthetic devices, implants and grafts, initial encounter | CPT/HCPCS: 99024 ==

== ENCOUNTER 2025-04-16 11:18 | Outpatient (REF) | payer MEDICARE, BC, SELFPAY ==
[2025-04-16 14:11] LABS: TSH (W/Ref FT4) 1.32 uIU/mL (0.36-3.74)
== END 2025-04-16 11:19 | disposition home or self-care (01) ==
LOC: LBN 11:18
PROVIDERS: PCP Nurse Practitioner Family; Visit Provider Nurse Practitioner Family
DX: E03.9 Hypothyroidism, unspecified (principal)
CPT/HCPCS: 84443

== ENCOUNTER 2025-06-10 11:01 | Outpatient (CLI) | payer MEDICARE, BC, SELFPAY ==
--- NOTE | 2025-06-10 09:45 | DI.RAD_ITS ---
Exam(s) XR SHOULDER RT COMPLETE 2+V EXAM: XR SHOULDER RT COMPLETE 2+V CLINICAL HISTORY: F/U RIGHT RTSA. TECHNIQUE: 2D digital imaging was performed. Three images were obtained. Grashey, axillary and Y views were obtained. COMPARISON: CR XR SHOULDER RT COMPLETE 2+V from 10/08/2024 FINDINGS: BONES: There are stable post operative changes of a right reverse total shoulder arthroplasty present. No fracture or dislocation. JOINTS: The orthopedic hardware is in good position. No evidence of hardware loosening. SOFT TISSUE: Normal. IMPRESSION: Stable right reversed total shoulder arthroplasty. DATA REPOSITORY: RADIATION DOSE DELIVERED:
== END 2025-06-10 11:02 | disposition home or self-care (01) ==
LOC: DIORS 11:02
PROVIDERS: PCP Nurse Practitioner Family; Visit Provider Student in an Organized Health Care Education/Training Program
DX: Z47.1 Aftercare following joint replacement surgery (principal); Z96.611 Presence of right artificial shoulder joint
CPT/HCPCS: 99024; 73030

== ENCOUNTER 2025-06-13 02:13 | Outpatient (CLI) | payer MEDICARE, BC, SELFPAY ==
--- NOTE | 2025-06-13 | DI.MRI_ITS ---
Exam(s) MR LUMBAR SPINE WO EXAM: MR LUMBAR SPINE WO CLINICAL HISTORY: LUMBAR SPONDYLOSIS WITH R L5 RADICULOPATHY, H/O STENOSIS. TECHNIQUE: Multiplanar multisequence MRI of the Lumbar spine was performed. COMPARISON: MR MRI - LUMBAR SPINE WO CONTRAST from 08/07/2014 FINDINGS: Bones: The last intervertebral disc space is designated the L5/S1 level for the numbering purpose of this examination. The vertebral body heights are well maintained. There is a right convex lumbar scoliosis. Endplate degenerative signal changes are seen particularly at L4-5 and L5-S1. Cord: It is of normal size and signal intensity. T12-L1: No disc herniations or bulges are present. No central spinal canal or neural foraminal stenosis. L1-2: There is a diffuse disc bulge. No central spinal canal or neural foraminal stenosis. L2-3: There is a diffuse disc bulge. There are degenerative changes of the facets and hypertrophy of the ligamentum flavum. The findings result in [id number] central spinal canal stenosis. There is mild bilateral neural foraminal stenosis. L3-4: There is a diffuse disc bulge. There are hypertrophic changes of the facets and ligamentum flavum. The findings result in marked central spinal canal stenosis. There is moderate bilateral neural foraminal stenosis. L4-5: There is a diffuse disc bulge with extension into the right neural foramen. Degenerative changes of the facets and hypertrophy of the ligamentum flavum is present. There is mild narrowing of the central spinal canal. There is mild right and moderate left neural foraminal stenosis. L5-S1: There is a diffuse disc bulge. There are hypertrophic changes of the facets and ligamentum flavum. The findings result in severe central spinal canal stenosis. There is marked right and mild left neural foraminal stenosis. Soft tissues: The visualized SI joints and sacrum are well maintained. The paraspinal soft tissues are unremarkable. IMPRESSION: Multilevel degenerative changes in the lumbar spine resulting in central spinal canal and neural foraminal stenosis. The findings are most marked from L2-3 through L5-S1. Please see the above discussion for each individual disc level abnormality. DATA REPOSITORY:
== END 2025-06-13 02:33 ==
LOC: DI 02:19
PROVIDERS: PCP Nurse Practitioner Family; Visit Provider Neuromusculoskeletal Medicine & OMM
DX: M47.27 Other spondylosis with radiculopathy, lumbosacral region (principal)
CPT/HCPCS: 72148

== ENCOUNTER 2025-08-13 08:13 | Outpatient (CLI) | payer MEDICARE, BC, SELFPAY ==
[2025-08-13 14:06] LABS: Abs Immature Grans 0.01 10^3/uL (0.0-0.06); HCT 40.0 % (36.0-46.0); HGB 13.6 g/dL (11.2-15.7); Immature Grans % 0.2 %; MCH 31.7 pg (27.0-33.0); MCHC 34.0 % (32.0-36.0); MCV 93 fL (80-95); MPV 9.6 fL (8.0-11.0); Platelet Count 274 10^3/uL (130-400); RBC 4.29 10^6/uL (3.93-5.22); RDW 13.6 % (11.7-14.6); RDW-SD 46.4 fL; WBC 4.38 10^3/uL (4.4-10.8)
[2025-08-13 14:10] LABS: ALT 15 U/L (10-49); AST 30 U/L (<34); Albumin 4.3 g/dL (3.4-5.0); Alkaline Phosphatase 38 U/L (46-116); Anion Gap 8.9 mmol/L (3-11); BUN 18 mg/dL (9-23); Bilirubin, Total 0.70 mg/dL (0.2-1.2); CO2 30.1 mmol/L (20.0-31.0); Calcium 9.4 mg/dL (8.3-10.6); Chloride 105 mmol/L (98-107); Glucose 66 mg/dL (74-106); Potassium 3.8 mmol/L (3.5-5.1); Sodium 144 mmol/L (136-145); Total Protein 6.8 g/dL (5.7-8.2)
== END 2025-08-13 08:14 | disposition home or self-care (01) ==
LOC: LOS 08:13
PROVIDERS: PCP Nurse Practitioner Family; Visit Provider Nurse Practitioner Family
DX: L29.9 Pruritus, unspecified (principal); N18.30 Chronic kidney disease, stage 3 unspecified
CPT/HCPCS: 36415; 80053; 85025

== ENCOUNTER → 2025-09-10 00:04 | Outpatient (CLI) | payer MEDICARE, BC, SELFPAY ==
--- NOTE | 2025-09-10 12:00 | DI.US_ITS ---
Exam(s) US ABDOMEN RENAL EXAM: US ABDOMEN RENAL CLINICAL HISTORY: epigastric pain, unexplained CKD,r10.13,n18.30 TECHNIQUE: Ultrasound abdomen performed using standard protocol. COMPARISON: CT ABD PELVIS WITH CONTRAST from 11/06/2017 FINDINGS: LIVER: Normal size and echogenicity. No focal liver lesions are seen. GALLBLADDER: No evidence of cholelithiasis. No evidence of wall thickening. No pericholecystic fluid identified. BABB'S SIGN: Negative. BILIARY SYSTEM: The common bile duct appears dilated at 13 millimeters. No common duct stone. No intrahepatic biliary ductal dilation. KIDNEYS: Kidneys are symmetric in size. No evidence of renal calculi. No evidence of hydronephrosis. No renal mass or cyst identified. PANCREAS: Normal where visualized. SPLEEN: Not enlarged. ABDOMINAL AORTA AND IVC: Visualized portions normal caliber. ASCITES: None seen. IMPRESSION: No evidence of renal or bladder abnormality. Dilated common duct 13 millimeters. No evidence of intrahepatic biliary dilatation or common duct stone. The gallbladder appears normal. DATA REPOSITORY:
== END ==
LOC: DI 00:04
PROVIDERS: PCP Nurse Practitioner Family; Visit Provider Nurse Practitioner Family
DX: R10.13 Epigastric pain (principal); N18.30 Chronic kidney disease, stage 3 unspecified
CPT/HCPCS: 76770; 76700